=== PATIENT | female | born 1955 | race Caucasian/White ===

== ENCOUNTER 2017-06-11 06:59 | Inpatient (IN) | payer OTHER ==
[2017-06-11] VITALS (7 sets, daily range): BP systolic 110–158; BP diastolic 49–90
[~2017-06-11] VITALS: Ht 170.2 cm; Wt 114.4 kg
--- NOTE | ~2017-06-11 | ST ---
[place], [place] EXERCISE STRESS TEST REPORT NAME: NOEMI ESCOBAR UNIT #: [id number] ROOM: 528 DOCTOR: SUKH QUINONES [facility],[place] BIRTHDATE: [birth year] DOS: 06/12/2017 The patient received Lexiscan 0.4 mg over 10 seconds, heart rate is 90, isotope was injected. No EKG changes for myocardial ischemia noted. No complications noted. Myocardial perfusion scan to follow. MAIRA LUZ MD CM:STRESS:EXERCISE STRESS TEST REPORT [id number] MAIRA LUZ MD [facility]
--- NOTE | ~2017-06-11 | CON ---
[place], [place] REPORT OF CONSULTATION NAME: NOEMI ESCOBAR UNIT #: [id number] ROOM: 528 [facility] [birth year] DOS: 06/11/2017 CARDIOLOGY CONSULTATION HISTORY OF PRESENT ILLNESS: The patient is a 61-year-old female, moderately obese individual, weighs about 114 kilos, 5 feet 7 inches tall and BMI is 39.5 kg/m2. She came in with history of precordial chest pain that lasted for more than an hour last night and some epigastric distress also, and the symptoms improved, came to the Emergency Room. The patient has a history of angina and coronary artery disease. Catheterization was done several months ago. The patient has a history of diabetes mellitus, hypertension. No syncope or presyncope. CT scan of the abdomen and pelvis was done. No acute changes noted. Chest x-ray was unremarkable in the Emergency Room. REVIEW OF SYSTEMS: HEENT: Unremarkable. CARDIOPULMONARY: As described. GASTROINTESTINAL: Unremarkable. GENITOURINARY: Unremarkable. NEUROLOGICAL: No stroke. PAST MEDICAL HISTORY: The patient has history of coronary artery disease, depression, essential hypertension, fatty liver, fibromyalgia, gastroesophageal reflux disease, diabetes mellitus type 2, insulin-dependent. The patient also has vitamin D deficiency. PAST SURGICAL HISTORY: The patient has an appendectomy, cardiac catheterization. The patient has coronary intervention done in the past, cholecystectomy, exploratory laparotomy and hysterectomy. SOCIAL HISTORY: No alcohol, drug or tobacco use. PHYSICAL EXAMINATION: VITAL SIGNS: Stable. Blood pressure 140/50, 150/90, 136/62. SKIN: Warm, not diaphoretic. NECK: Supple. No jugular venous distention. LUNGS: No rales heard. HEART: S1, S2 regular. No gallops heard. ABDOMEN: Soft. SKIN: Color is good, not diaphoretic. No cyanosis. NEUROLOGY: No focal neurological deficit. RECTAL, GENITAL, AND BREASTS: Deferred unrelated. LABORATORY DATA: Initial electrolytes are unremarkable. Troponin is also unremarkable. IMPRESSION: Gastroesophageal reflux disease. DIAGNOSES: Chest pain and history of coronary intervention and Lexiscan Cardiolite evaluated for ischemic heart disease. I will review the [place], [place] REPORT OF CONSULTATION NAME: NOEMI ESCOBAR UNIT #: [id number] ROOM: 528 DOCTOR: SUKH QUINONES [facility] BIRTHDATE: [birth year] echocardiogram. We will continue the current therapy. Workup is in progress. MAIRA LUZ MD CM:CONSTR:REPORT OF CONSULTATION 1309 06/12/17 0350 interface
[~2017-06-11 06:59] MED LIST: ALPRAZOLAM1 MG PO; AMOXICILLIN500 M2 PO; ANAPROX DS550 MG PO; AVPAK AZITHROM250 M1 PO; BENTYL20 MG PO; CARAFATE1 G1 PO; CICLOPIROX OLAM0.77% T; CLARITIN10 MG PO; CLINDAMYCIN HC300 MG PO; CLINDAMYCIN300 MG PO; CLONAZEPAM1 MG PO; CLONAZEPAM2 MG PO; COREG25 MG PO; COREG3.125 MG PO; COZAAR100 MG PO; DIAZEPAM2 MG PO; FENOFIBRATE160 MG PO; GAVISCON 80 MG-1 CT1 PO; GLIPIZIDE5 MG PO; INVOKANA100 M1 PO; INVOKANA100 MG PO; ISOSORBIDE30 MG PO; KLONOPIN1 M1 PO; KLONOPIN2 M1 PO; LEVEMIR10 ML SC; LISINOPRIL HCTZ1 TA1 PO; MEDROL DOSEPAK4 MG PO; MICONAZOLE V; Motrin,Rufen800 MG PO; NAPROSYN500 MG PO; NORTRIPTYLINE50 MG PO; NOVOLIN 701 UNIT/0.0 SC; NOVOLOG 70/30 M10 ML SC; NOVOLOG1 UNIT/0.0 SC; NOVOLOG100 U/ML SC; NYSTATIN CREAM15 GM T; OSCAL/D,OYSTER250 MG PO; PAMELOR50 MG PO; PCN-200200 MG PO; POTASSIUM CHLO10 ME5 PO; PREMARIN0.625 MG PO; PREVACID30 M1 PO; PROTONIX TR40 M1 PO; PROVENTIL0.09 MG/AC IH; TRICOR145 MG PO; TRICOR48 MG PO; VICODIN 5/500 505 MG PO; VITAMIN D PO; VITAMIN D50000 I3 PO; VOLTAREN1% TP; XANAX1 MG PO; ZETIA10 MG PO; ZOFRAN4 MG PO
--- NOTE | 2017-06-11 07:15 | NUR ---
REPORT RECIEVED AT 0715 FROM ADALGISA REGALADO. SEE EXAM ROOM ASSESSMENT.IZZY RN
[2017-06-11 07:22] LABS: BASO % 0.4 % (0.0-1.0); EOS # 0.1 10*3/uL (0.0-0.4); EOS % 1.8 % (1.0-4.0); HEMATOCRIT 42.6 % (37.0-47.0); HEMOGLOBIN 14.1 g/dl (12.0-16.0); LYMPH # 2.1 10*3/uL (1.3-4.4); LYMPH % 28.7 % (27.0-41.0); MEAN CELL VOLUME 88.2 fl (81.0-99.0); MEAN CORPUSCULAR HGB 29.2 pg (27.0-31.0); MEAN CORPUSCULAR HGB CONC 33.1 g/dl (33.0-37.0); MEAN PLATELET VOLUME 10.2 fl (9.6-12.3); MONO # 0.4 10*3/uL (0.1-1.0); NEUT # 4.6 10*3/uL (2.3-7.9); NEUT % 62.7 % (47.0-73.0); PLATELET COUNT AUTOMATED 236 10*3/uL (130-400); RED BLOOD COUNT 4.83 10*6/uL (4.10-5.10); RED CELL DISTRI WIDTH 13.3 % (0-14.5); WHITE BLOOD COUNT 7.4 10*3/uL (4.8-10.8)
[2017-06-11 07:31] LABS: ACT PARTIAL THROMBO TIME 23.1 SECONDS (20.8-31.5)
[2017-06-11 07:39] LABS: ALBUMIN 3.4 gm/dl (3.1-4.5); ALKALINE PHOSPHATASE 62 U/L (45-117); BUN 20 mg/dl (7-24); CHLORIDE 106 mmol/L (98-107); CKMB 0.5 ng/ml (0.5-3.6); CPK 54 U/L (26-192); CREATININE 0.91 mg/dL (0.55-1.02); LIPASE 162 U/L (73-393); MAGNESIUM 2.3 mg/dL (1.5-2.1); POTASSIUM 3.9 mmol/L (3.5-5.1); SGOT/AST 44 IU/L (3-35); SGPT/ALT 32 U/L (12-78); SODIUM 138 mmol/L (136-145); TOTAL PROTEIN 7.3 gm/dL (6.4-8.2)
[2017-06-11 07:40] LABS: TROPONIN I < 0.015 ng/ml (<0.045)
--- NOTE | 2017-06-11 10:00 | NUR ---
Time: 1000 A 61 year old F admitted to 5E under services of SIM EDMONDS DO. Pt. arrived via stretcher from ER. Chief complaint: CHEST/EPIGASTRIC PAIN. PHOEBE FLORES
--- NOTE | 2017-06-11 10:30 | NUR ---
PT C/O WEAKNESS, AND GENERALIZED MALAISE. REQUESTION BS TO BE TAKEN. BS IS 154. DR. MORAN AT BEDSIDE, & AWARE OF PT C/O. DISCUSSED POC W/PT.
--- NOTE | 2017-06-11 12:01 | NUR ---
RESTING COMFORTABLY, CONTINUES TO DENY CHEST PAIN. NO SOB, OR VISUAL CHANGES NOTED. CALL LIGHT SYSTEM REINFORCED FOR ASSISTENCE.
[2017-06-11] MEDS ORDERED: NORCO 5-325 TA1 EACH PO (12:10)
[2017-06-11] MEDS ORDERED: KLONOPIN1 M1 PO (12:11)
[2017-06-11] MEDS ORDERED: TRAZODONE100 MG PO (12:12)
--- NOTE | 2017-06-11 12:13 | NUR ---
PER PT, SHE USES 2 PHARMACIES, [facility] [place] & [facility]. MEDS UPDATED WITH [facility], AWAITING FAX FROM [facility].
--- NOTE | 2017-06-11 12:24 | NUR ---
SPOKE WITH DR. LUZ'S ANSWERING SERVICE REGARDING CONSULT.
--- NOTE | 2017-06-11 12:29 | NUR ---
DR. LUZ NOTIFIED OF CONSULT, NEW ORDERS RECIEVED.
--- NOTE | 2017-06-11 13:02 | NUR ---
DR. LUZ INTO SEE PT. DISCUSSED PLAN OF CARE.
[2017-06-11] MEDS ORDERED: IMDUR SA60 MG PO (13:14)
[2017-06-11] MEDS ORDERED: Motrin,Rufen800 MG PO (13:17)
[2017-06-11] MEDS ORDERED: ALOGLIPTIN6.25 MG PO (13:19)
[2017-06-11] MEDS ORDERED: CLOBETASOL EMOL15 GM T (13:21)
[2017-06-11] MEDS ORDERED: NOVOLOG100 UNIT/1 SQ (13:24)
[2017-06-11] MEDS ORDERED: BASAGLAR SC (13:29)
[2017-06-11] MEDS ORDERED: PROTONIX20 MG PO (13:32)
[2017-06-11 14:01] LABS: BILIRUBIN NEGATIVE (NEGATIVE); BLOOD TRACE-LYSED (NEGATIVE); CLARITY CLEAR (CLEAR); COLOR YELLOW (YELLOW); GLUCOSE TRACE (NEGATIVE); KETONE NEGATIVE (NEGATIVE); LEUKO ESTERASE 1+ (NEGATIVE); NITRITE NEGATIVE (NEGATIVE); UROBILINOGEN 0.2 E.U./dl (0.2-1.0)
[2017-06-11 14:15] LABS: BACTERIA TRACE
--- NOTE | 2017-06-11 17:15 | NUR ---
MEDICATED PO ORDERED PER PT REQUEST WITH MAALOX FOR C/O "STOMACH BURNING SENSATION" AND KLONOPIN FOR C/O INCREASED ANXIETY. SEE EMAR. DISCUSSED STAYING IN UPRIGHT POSITION AFTER EATING. PT VOICES UNDERSTANDING.
--- NOTE | 2017-06-11 18:46 | NUR ---
PER PT, MEDICATIONS EFFECTIVE IN RELIEVING "BURNING SENSATION" IN STOMACH.
--- NOTE | 2017-06-11 20:00 | NUR ---
RESTING IN BED. RESPIRATIONS EASY. LUNGS DIMINISHED, CLEAR. PULSE OX 97% RA. C/O SINUS DRAINAGE. TRACE BLE EDEMA NOTED, TEDS APPLIED PER PRN ORDER. CALL LIGHT WITHIN REACH.
--- NOTE | 2017-06-11 21:20 | NUR ---
ANXIOUS AND TEARFUL. PATIENT EXPLAINS THAT HER SISTER RECENTLY AND THAT SHE IS STRESSED. REQUESTED AND RECEIVED KLONOPIN FOR ANXIETY. ALSO RECEIVED GAVISCON PER PRN ORDER FOR C/O "STOMACH BURNING." CALL LIGHT WITHIN REACH. WILL MONITOR FOR EFFECTIVENESS
--- NOTE | 2017-06-11 23:00 | NUR ---
REQUESTED AND RECEIVED TRAZADONE AT THIS TIME THAT PATIENT EARLIER REFUSED.
[2017-06-12] VITALS: BP 138/69
--- NOTE | 2017-06-12 | NUR ---
EARLIER MEDS APPEAR EFFECTIVE. PATIENT SLEEPING
--- NOTE | 2017-06-12 02:25 | NUR ---
PATIENT AWAKENS, ANXIOUS AND TEARFUL. PATIENT C/O ALL OVER PAIN RATING A 7, MEDICATED WITH TYLENOL PER PRN ORDER. ALSO MEDICATED WITH RESTORIL PATIENT STATES "I JUST WANT TO SLEEP." PATIENT ENCOURAGED TO ATTEMPT TO RELAX, TO WHICH PATIENT TEARFULLY REPLIES "I JUST WISH MY MOM AND SISTER WERE HERE." 1:1 PROVIDED IN ATTEMPTS TO CALM PATIENT WITH LITTLE SUCCESS
--- NOTE | 2017-06-12 04:00 | NUR ---
EARLIER MEDS APPEAR EFFECTIVE. PATIENT RESTING WITH EYES CLOSED. RESPIRATIONS EASY. CALL LIGHT WITHIN REACH
--- NOTE | 2017-06-12 05:54 | NUR ---
PATIENT INJECTED FOR STRESS TEST. NOW VOMITING. CARDIAC REHAB NOTIFIED AND OK RECEIVED TO GIVE ZOFRAN, MEDICATED PER PRN ORDER.
--- NOTE | 2017-06-12 06:00 | NUR ---
OFF FLOOR FOR TESTING.
--- NOTE | 2017-06-12 06:58 | NUR ---
INFORMED SIGNED CONSENT OBTAINED FOR LEXISCAN STRESS TEST WITH DR LUZ. RESTING EKG NSR HR 77 BP 140/68. PULSE OX 99% LUNGS CLEAR. PT COMPLETED ONE MINUTE OF A LEXISCAN PROTOCOL WITH PT RECEIVING LEXISCAN 0.4MG IV OVER 10 SECONDS. PT C/O CHEST DISCOMFORT THAT SUBSIDED. NO ARRHYTHMIAS OR ST CHANGES NOTED. LAST RECOVERY HR OF 90 BP 128/70. PT IN STABLE CONDITION AWAITING NUCLEAR IMAGES.
[2017-06-12 07:30] LABS: BASO % 0.4 % (0.0-1.0); EOS # 0.1 10*3/uL (0.0-0.4); EOS % 0.9 % (1.0-4.0); HEMATOCRIT 44.5 % (37.0-47.0); HEMOGLOBIN 14.8 g/dl (12.0-16.0); LYMPH # 2.4 10*3/uL (1.3-4.4); LYMPH % 32.6 % (27.0-41.0); MEAN CELL VOLUME 88.3 fl (81.0-99.0); MEAN CORPUSCULAR HGB 29.4 pg (27.0-31.0); MEAN CORPUSCULAR HGB CONC 33.3 g/dl (33.0-37.0); MEAN PLATELET VOLUME 10.2 fl (9.6-12.3); MONO # 0.5 10*3/uL (0.1-1.0); MONO % 6.3 % (3.0-9.0); NEUT # 4.4 10*3/uL (2.3-7.9); NEUT % 59.4 % (47.0-73.0); PLATELET COUNT AUTOMATED 255 10*3/uL (130-400); RED BLOOD COUNT 5.04 10*6/uL (4.10-5.10); RED CELL DISTRI WIDTH 13.5 % (0-14.5); WHITE BLOOD COUNT 7.5 10*3/uL (4.8-10.8)
[2017-06-12 08:00] VITALS: BP 147/56
[2017-06-12 08:02] LABS: ALBUMIN 3.5 gm/dl (3.1-4.5); ALKALINE PHOSPHATASE 68 U/L (45-117); BUN 16 mg/dl (7-24); CHLORIDE 103 mmol/L (98-107); CHOLESTEROL 178 mg/dL (<200); HDL CHOLESTEROL 48 mg/dl (40-60); LDL CHOLESTEROL 87 mg/dL (9-159); MAGNESIUM 2.6 mg/dL (1.5-2.1); PHOSPHOROUS 3.1 mg/dL (2.5-4.9); POTASSIUM 3.7 mmol/L (3.5-5.1); SGOT/AST 38 IU/L (3-35); SGPT/ALT 35 U/L (12-78); SODIUM 138 mmol/L (136-145); TOTAL PROTEIN 7.9 gm/dL (6.4-8.2); TRIGLYCERIDES 216 mg/dl (<150); VLDL CHOLESTEROL 43 mg/dL (6-40)
--- NOTE | 2017-06-12 09:00 | NUR ---
Drawing Supervisor in to talk to patient. Patient states lives at home with alone. There are few steps in the home. Physician: xenia kingston [facility] Home health services: none Patient's level of ADLs: INDEPENDENT Patient has working utilities: all working DME: cane Follow-up physician's appointment after d/c: will be made by hospitalist nurse director upon discharge Does patient want to access PORTAL?: no Discharge plan discussed with patient, patient lives at home alone, she is independent in adls and ambulation, has a cane but rarely uses it, patient drives, states she will be going back home when able and denies any home needs. GIGI ARANDA
--- NOTE | 2017-06-12 09:14 | NUR ---
DR MIRELES IN TO SEE PT & EXAMINED PTS LEFT & RT EAR DUE TO PT C/O LEFT EAR DISCOMFORT. PT DECLINES AM INSULIN AT THIS TIME. PRN KLONOPIN PER PT REQUEST FOR C/O INCREASED ANXIETY. SEE SHIFT ASSESSMENT.
--- NOTE | 2017-06-12 11:21 | NUR ---
MEDICATED PO ORDERED PER PT REQUEST WITH TYLENOL 2 TABS FOR C/O MEDINA. SEE EMAR.
[2017-06-12 12:00] VITALS: BP 104/61
--- NOTE | 2017-06-12 12:08 | NUR ---
OOB TO CHAIR, CALL LIGHT SYSTEM WITHIN REACH.
[2017-06-12] MEDS ORDERED: GAVISCON LIQUI355 ML PO (15:52)
[2017-06-12] MEDS ORDERED: PROTONIX20 MG PO (15:52)
[2017-06-12 16:00] VITALS: BP 94/52
--- NOTE | 2017-06-12 16:42 | NUR ---
Discharge instructions reviewed with patient/family. Patient receptive and verbalizes understanding. Written instructions given to patient/family. JOSEY DONNELLY
== END 2017-06-12 16:42 | disposition home or self-care (01) | DRG 392 ==
LOC: ED 06:59 → EDHOLD 08:56 → 5E 08:56
PROVIDERS: Emergency Medicine; Family Medicine; ADMIT Internal Medicine
PROC: 4A02XM4 Measurement of Cardiac Total Activity, External Approach (ICD-10-PCS; principal; 2017-06-12)
PROC: 3E073KZ Introduction of Other Diagnostic Substance into Coronary Artery, Percutaneous Approach (ICD-10-PCS; 2017-06-12)
DX: K29.70 Gastritis, unspecified, without bleeding (principal); E11.65 Type 2 diabetes mellitus with hyperglycemia; K76.0 Fatty (change of) liver, not elsewhere classified; K21.9 Gastro-esophageal reflux disease without esophagitis; E83.41 Hypermagnesemia; E66.01 Morbid (severe) obesity due to excess calories; I25.118 Atherosclerotic heart disease of native coronary artery with other forms of angina pectoris; F41.1 Generalized anxiety disorder; M79.7 Fibromyalgia; F32.9 Major depressive disorder, single episode, unspecified; I10 Essential (primary) hypertension; M19.90 Unspecified osteoarthritis, unspecified site; E78.2 Mixed hyperlipidemia; Z79.4 Long term (current) use of insulin; Z90.49 Acquired absence of other specified parts of digestive tract; Z90.710 Acquired absence of both cervix and uterus; Z82.49 Family history of ischemic heart disease and other diseases of the circulatory system; Z83.3 Family history of diabetes mellitus; Z83.6 Family history of other diseases of the respiratory system; Z79.899 Other long term (current) drug therapy; Z88.8 Allergy status to other drugs, medicaments and biological substances; Z91.041 Radiographic dye allergy status; Z68.37 Body mass index [BMI] 37.0-37.9, adult; Z88.6 Allergy status to analgesic agent

== ENCOUNTER 2017-07-09 07:46 | Inpatient (IN) | payer OTHER ==
[~2017-07-09] VITALS: Ht 170.1 cm; Wt 109.4 kg
--- NOTE | ~2017-07-09 | O ---
[place], [place] OPERATIVE NOTE NAME: NOEMI ESCOBAR UNIT #: [id number] ROOM: 407 [facility] BIR[facility] [birth year] DOS: HISTORY OF PRESENT ILLNESS: The patient has presented with multiple medical problems, among which has cervical dysphagia, particularly to solid food. PAST MEDICAL HISTORY: Associated diabetic neuropathy, anxiety, degenerative joint disease, depression, fatty liver, fibromyalgia, gastroesophageal reflux disease, hyperlipidemia, irritable bowel syndrome, diabetes mellitus. PAST SURGICAL HISTORY: Associated balloon angioplasty, cholecystectomy, coronary artery balloon dilation, exploratory laparotomy, hysterectomy, D and C. SOCIAL HISTORY: Nonsmoker, nonalcohol consumer. FAMILY HISTORY: Noncontributory. ALLERGIES: BENADRYL, DIFLUCAN, IODINE, MORPHINE, PROPOXYPHENE. MEDICATIONS: List has been reviewed. PROCEDURE: Today's procedure part of investigation is panendoscopy plus balloon dilation of esophagus plus biopsy. PREMEDICATION: Versed and Diprivan. SCOPE: Olympus forward-viewing gastroscope Q10 video. REPORT: After putting the patient in the left lateral position and after application of lubricant to the scope, the scope was introduced. Thereafter, under direct visualization, I advanced through the length of esophagus without difficulty. Esophagus, cervical, thoracic and distal within normal limits. Stricture of benign nature in the upper esophagus was noticed. Gastric pouch was entered. Gastritis seen. Antrum was biopsied. Duodenal bulb, second and third part within normal limits. Scope was withdrawn back to the gastric pouch. A balloon size 20 was introduced into gastric pouch, inflated to size 20 and orally withdrawn. The highest resistance and very tight ____ cervical esophagus was dilated. The patient extubated, tolerated procedure well. IMPRESSION: Cervical esophageal stricture, status post balloon dilation, gastritis, status post biopsy. PLAN AND DISCUSSION: This patient has been taking ibuprofen 800 mg t.i.d. p.r.n. and most likely she is going to go back to the above because of degenerative joint disease; therefore, I am going to keep her on omeprazole 20 mg p.o. every day at the time of discharge and at the present time, while she is in hospital, we are going to restart her on regular diet to see if she tolerates and as far as GI system is concerned, she will be okay for discharge. Other adjunctive diagnoses that have been in GI system entertained have been epigastric pain, hemetemesis, nausea, dysphagia, gastroesophageal reflux [place], [place] OPERATIVE NOTE NAME: NOEMI ESCOBAR UNIT #: [id number] ROOM: 407 DOCTOR: ALICE QUINONES,WILFRED BIRTHDATE: [birth year] symptomatology and irritable bowel syndrome and fatty liver. Thank you very much indeed for your kind referral. WILFRED JENKINS MD CM:OPRECORD:OPERATIVE NOTE 08 2357 WILFRED JENKINS MD 07/10/17 2356 interface
[~2017-07-09 07:46] MED LIST changes: +ALOGLIPTIN6.25 MG PO; +BASAGLAR SC; +CLOBETASOL EMOL15 GM T; +GAVISCON LIQUI355 ML PO; +IMDUR SA60 MG PO; +NORCO 5-325 TA1 EACH PO; +NOVOLOG100 UNIT/1 SQ; +PROTONIX20 MG PO; +TRAZODONE100 MG PO
[2017-07-09 07:49] VITALS: BP 100/70
[2017-07-09 08:22] LABS: BILIRUBIN NEGATIVE (NEGATIVE); BLOOD TRACE-INTACT (NEGATIVE); CLARITY CLEAR (CLEAR); COLOR YELLOW (YELLOW); GLUCOSE NEGATIVE (NEGATIVE); KETONE NEGATIVE (NEGATIVE); LEUKO ESTERASE NEGATIVE (NEGATIVE); NITRITE NEGATIVE (NEGATIVE); UROBILINOGEN 0.2 E.U./dl (0.2-1.0)
[2017-07-09 08:28] LABS: BACTERIA TRACE; WBC 0-2 wbc/hpf (0-5)
[2017-07-09 08:35] LABS: BASO % 0.4 % (0.0-1.0); EOS # 0.1 10*3/uL (0.0-0.4); EOS % 1.5 % (1.0-4.0); HEMATOCRIT 42.7 % (37.0-47.0); HEMOGLOBIN 14.1 g/dl (12.0-16.0); LYMPH % 27.8 % (27.0-41.0); MEAN CELL VOLUME 87.7 fl (81.0-99.0); MEAN PLATELET VOLUME 10.3 fl (9.6-12.3); MONO # 0.5 10*3/uL (0.1-1.0); MONO % 6.4 % (3.0-9.0); NEUT # 4.6 10*3/uL (2.3-7.9); NEUT % 63.6 % (47.0-73.0); PLATELET COUNT AUTOMATED 239 10*3/uL (130-400); RED BLOOD COUNT 4.87 10*6/uL (4.10-5.10); RED CELL DISTRI WIDTH 13.2 % (0-14.5); WHITE BLOOD COUNT 7.2 10*3/uL (4.8-10.8)
[2017-07-09 08:44] LABS: ACT PARTIAL THROMBO TIME 23.9 SECONDS (20.8-31.5)
[2017-07-09 08:54] LABS: ALBUMIN 3.6 gm/dl (3.1-4.5); ALKALINE PHOSPHATASE 63 U/L (45-117); BUN 10 mg/dl (7-24); CHLORIDE 107 mmol/L (98-107); CREATININE 0.98 mg/dL (0.55-1.02); LIPASE 153 U/L (73-393); MAGNESIUM 2.4 mg/dL (1.5-2.1); POTASSIUM 4.1 mmol/L (3.5-5.1); SGOT/AST 30 IU/L (3-35); SGPT/ALT 28 U/L (12-78); SODIUM 141 mmol/L (136-145); TOTAL PROTEIN 7.8 gm/dL (6.4-8.2)
[2017-07-09 09:04] LABS: TROPONIN I < 0.015 ng/ml (<0.045)
[2017-07-09 16:00] VITALS: BP 142/67
[2017-07-09 20:00] VITALS: BP 123/59
[2017-07-10] VITALS (7 sets, daily range): BP systolic 101–141; BP diastolic 52–76
[2017-07-10] MEDS ORDERED: Imdur SA60 MG PO (03:47)
[2017-07-10 05:16] LABS: BUN 13 mg/dl (7-24); CHLORIDE 104 mmol/L (98-107); CHOLESTEROL 137 mg/dL (<200); MAGNESIUM 2.5 mg/dL (1.5-2.1); PHOSPHOROUS 3.4 mg/dL (2.5-4.9); POTASSIUM 3.9 mmol/L (3.5-5.1); SODIUM 139 mmol/L (136-145); TRIGLYCERIDES 158 mg/dl (<150); VLDL CHOLESTEROL 32 mg/dL (6-40)
[2017-07-10 05:26] LABS: FREE T4 1.23 ng/dl (0.76-1.46); HDL CHOLESTEROL 44 mg/dl (40-60); LDL CHOLESTEROL 61 mg/dL (9-159)
[2017-07-10 06:00] LABS: BASO % 0.3 % (0.0-1.0); EOS # 0.1 10*3/uL (0.0-0.4); EOS % 1.6 % (1.0-4.0); HEMATOCRIT 41.6 % (37.0-47.0); HEMOGLOBIN 13.7 g/dl (12.0-16.0); LYMPH # 2.9 10*3/uL (1.3-4.4); LYMPH % 43.6 % (27.0-41.0); MEAN CELL VOLUME 89.8 fl (81.0-99.0); MEAN CORPUSCULAR HGB 29.6 pg (27.0-31.0); MEAN CORPUSCULAR HGB CONC 32.9 g/dl (33.0-37.0); MEAN PLATELET VOLUME 10.8 fl (9.6-12.3); MONO # 0.5 10*3/uL (0.1-1.0); MONO % 8.1 % (3.0-9.0); NEUT # 3.1 10*3/uL (2.3-7.9); NEUT % 46.1 % (47.0-73.0); PLATELET COUNT AUTOMATED 231 10*3/uL (130-400); RED BLOOD COUNT 4.63 10*6/uL (4.10-5.10); RED CELL DISTRI WIDTH 13.5 % (0-14.5); WHITE BLOOD COUNT 6.7 10*3/uL (4.8-10.8)
[2017-07-10] MEDS ORDERED: OMEPRAZOLE D/R20 MG PO (20:10)
[2017-07-10] MEDS ORDERED: REGLAN5 MG PO (20:18)
[2017-07-10] MEDS ORDERED: KLONOPIN2 M1 PO (22:08)
[2017-07-11] VITALS: BP 117/79
[2017-07-11 08:00] VITALS: BP 116/55
[2017-07-11] MEDS ORDERED: PROTONIX20 MG PO (10:22)
[2017-07-11] MEDS ORDERED: VITAMIN D-32000 UNIT PO (10:27)
== END 2017-07-11 11:30 | disposition home or self-care (01) | DRG 392 ==
LOC: ED 07:46 → 4E 11:52 → EDHOLD 11:52 → 4E 12:32
PROVIDERS: Emergency Medicine; Family Medicine Adult Medicine; Internal Medicine; ADMIT Internal Medicine
PROC: 0D718ZZ Dilation of Upper Esophagus, Via Natural or Artificial Opening Endoscopic (ICD-10-PCS; principal; 2017-07-09)
PROC: 0DB68ZX Excision of Stomach, Via Natural or Artificial Opening Endoscopic, Diagnostic (ICD-10-PCS; 2017-07-09)
DX: K22.2 Esophageal obstruction (principal); E11.42 Type 2 diabetes mellitus with diabetic polyneuropathy; N12 Tubulo-interstitial nephritis, not specified as acute or chronic; E11.65 Type 2 diabetes mellitus with hyperglycemia; E83.41 Hypermagnesemia; K76.0 Fatty (change of) liver, not elsewhere classified; E66.01 Morbid (severe) obesity due to excess calories; B96.20 Unspecified Escherichia coli [E. coli] as the cause of diseases classified elsewhere; K21.9 Gastro-esophageal reflux disease without esophagitis; I25.10 Atherosclerotic heart disease of native coronary artery without angina pectoris; K58.1 Irritable bowel syndrome with constipation; M79.7 Fibromyalgia; F41.1 Generalized anxiety disorder; E78.2 Mixed hyperlipidemia; M19.90 Unspecified osteoarthritis, unspecified site; L30.9 Dermatitis, unspecified; E53.8 Deficiency of other specified B group vitamins; K29.70 Gastritis, unspecified, without bleeding; I10 Essential (primary) hypertension; Z90.49 Acquired absence of other specified parts of digestive tract; Z82.49 Family history of ischemic heart disease and other diseases of the circulatory system; Z83.3 Family history of diabetes mellitus; Z79.4 Long term (current) use of insulin; Z68.37 Body mass index [BMI] 37.0-37.9, adult; Z82.3 Family history of stroke; Z83.6 Family history of other diseases of the respiratory system; Z80.3 Family history of malignant neoplasm of breast; Z84.89 Family history of other specified conditions; Z88.8 Allergy status to other drugs, medicaments and biological substances; Z88.6 Allergy status to analgesic agent; Z91.041 Radiographic dye allergy status; Z79.899 Other long term (current) drug therapy

== ENCOUNTER → 2017-10-14 | Outpatient (CLI) | payer OTHER ==
[~2017-10-14] MED LIST changes: +Imdur SA60 MG PO; +OMEPRAZOLE D/R20 MG PO; +REGLAN5 MG PO; +VITAMIN D-32000 UNIT PO
== END | disposition home or self-care (01) ==
LOC: RAD 14:28
DX: M15.0 Primary generalized (osteo)arthritis (principal)

== ENCOUNTER → 2018-02-11 | Outpatient (CLI) | payer OTHER | END | disposition home or self-care (01) | LOC: LAB 11:19 | DX: M16.11 Unilateral primary osteoarthritis, right hip (principal); M25.531 Pain in right wrist; G89.29 Other chronic pain; Z91.81 History of falling ==

== ENCOUNTER → 2018-04-23 | Outpatient (CLI) | payer OTHER ==
[~2018-04-23] MED LIST changes: +VICO10300 PO
[2018-04-23 14:20] LABS: CREATININE 1.3 mg/dL (0.55-1.02); POTASSIUM 3.8 mmol/L (3.5-5.1)
== END | disposition home or self-care (01) ==
LOC: LAB 13:26
PROVIDERS: Internal Medicine Cardiovascular Disease
DX: I25.118 Atherosclerotic heart disease of native coronary artery with other forms of angina pectoris (principal)

== ENCOUNTER 2018-04-24 11:54 | Emergency (ER) | payer OTHER ==
[~2018-04-24] VITALS: Ht 165.1 cm; Wt 95.3 kg
--- NOTE | ~2018-04-24 | EKG ---
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
[~2018-04-24 11:54] MED LIST changes: -VICO10300 PO
[2018-04-24 12:47] LABS: BASO % 0.3 % (0.0-1.0); EOS # 0.1 10*3/uL (0.0-0.4); HEMATOCRIT 41.1 % (37.0-47.0); HEMOGLOBIN 13.7 g/dl (12.0-16.0); LYMPH # 1.9 10*3/uL (1.3-4.4); LYMPH % 18.7 % (27.0-41.0); MEAN CELL VOLUME 88.6 fl (81.0-99.0); MEAN CORPUSCULAR HGB 29.5 pg (27.0-31.0); MEAN CORPUSCULAR HGB CONC 33.3 g/dl (33.0-37.0); MEAN PLATELET VOLUME 10.2 fl (9.6-12.3); MONO # 0.6 10*3/uL (0.1-1.0); NEUT # 7.6 10*3/uL (2.3-7.9); NEUT % 73.6 % (47.0-73.0); PLATELET COUNT AUTOMATED 242 10*3/uL (130-400); RED BLOOD COUNT 4.64 10*6/uL (4.10-5.10); RED CELL DISTRI WIDTH 13.3 % (0-14.5); WHITE BLOOD COUNT 10.3 10*3/uL (4.8-10.8)
[2018-04-24 13:03] VITALS: BP 113/62
[2018-04-24 13:05] LABS: ALBUMIN 3.5 gm/dl (3.1-4.5); ALKALINE PHOSPHATASE 66 U/L (45-117); BUN 13 mg/dl (7-24); CHLORIDE 106 mmol/L (98-107); CREATININE 0.98 mg/dL (0.55-1.02); POTASSIUM 3.8 mmol/L (3.5-5.1); SGOT/AST 43 IU/L (3-35); SGPT/ALT 36 U/L (12-78); SODIUM 139 mmol/L (136-145); TOTAL PROTEIN 7.6 gm/dL (6.4-8.2)
[2018-04-24 13:10] LABS: TROPONIN I < 0.015 ng/ml (<0.045)
[2018-04-24] MEDS ORDERED: VICO10300 PO (14:47)
== END 2018-04-24 23:49 | disposition home or self-care (01) ==
LOC: ED 11:54
PROVIDERS: Emergency Medicine
DX: R07.89 Other chest pain (principal); G62.9 Polyneuropathy, unspecified; I25.10 Atherosclerotic heart disease of native coronary artery without angina pectoris; E11.40 Type 2 diabetes mellitus with diabetic neuropathy, unspecified; K21.9 Gastro-esophageal reflux disease without esophagitis; M79.7 Fibromyalgia; E78.2 Mixed hyperlipidemia; E66.01 Morbid (severe) obesity due to excess calories; M19.90 Unspecified osteoarthritis, unspecified site; E11.65 Type 2 diabetes mellitus with hyperglycemia; Z90.49 Acquired absence of other specified parts of digestive tract; Z90.710 Acquired absence of both cervix and uterus; Z98.890 Other specified postprocedural states; Z79.899 Other long term (current) drug therapy; Z79.4 Long term (current) use of insulin; Z88.6 Allergy status to analgesic agent; Z88.1 Allergy status to other antibiotic agents; Z88.5 Allergy status to narcotic agent; Z79.82 Long term (current) use of aspirin

== ENCOUNTER → 2018-10-21 | Outpatient (CLI) | payer OTHER ==
[~2018-10-21] MED LIST changes: +VICO10300 PO
== END | disposition home or self-care (01) ==
LOC: RAD 11:44
DX: R06.02 Shortness of breath (principal); I50.9 Heart failure, unspecified

== ENCOUNTER 2019-08-10 09:55 | Inpatient (IN) | payer OTHER ==
[~2019-08-10] VITALS: Ht 170.2 cm; Wt 116.6 kg
--- NOTE | ~2019-08-10 | EKG ---
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
[2019-08-10 09:56] VITALS: BP 134/68
--- NOTE | 2019-08-10 10:02 | NUR ---
PATIENT CHANGED INTO GOWN FOR POSSIBLE XRAYS.
[2019-08-10 12:56] LABS: BASO % 0.4 % (0.0-1.0); EOS # 0.1 10*3/uL (0.0-0.4); EOS % 1.4 % (1.0-4.0); HEMATOCRIT 40.6 % (37.0-47.0); LYMPH # 2.5 10*3/uL (1.3-4.4); MEAN CELL VOLUME 92.7 fl (81.0-99.0); MEAN CORPUSCULAR HGB 29.7 pg (27.0-31.0); MONO # 0.5 10*3/uL (0.1-1.0); MONO % 6.7 % (3.0-9.0); NEUT # 4.6 10*3/uL (2.3-7.9); NEUT % 59.2 % (47.0-73.0); PLATELET COUNT AUTOMATED 265 10*3/uL (130-400); RED BLOOD COUNT 4.38 10*6/uL (4.10-5.10); RED CELL DISTRI WIDTH 13.7 % (0-14.5); WHITE BLOOD COUNT 7.8 10*3/uL (4.8-10.8)
[2019-08-10 13:00] VITALS: BP 123/57
[2019-08-10 13:06] LABS: INTERNATIONAL NORM RATIO 0.9 (2.0-3.5)
[2019-08-10 13:10] LABS: ALBUMIN 3.4 gm/dl (3.1-4.5); CREATININE 1.17 mg/dL (0.55-1.02); POTASSIUM 4.1 mmol/L (3.5-5.1); TOTAL PROTEIN 7.6 gm/dL (6.4-8.2)
[2019-08-10 13:35] VITALS: BP 123/49
--- NOTE | 2019-08-10 13:45 | NUR ---
PATIENT IS HAVING PAIN RELIEF WITH THE 50MCG OF FENTANYL IV.
--- NOTE | 2019-08-10 13:58 | NUR ---
PATIENT AT MRI AT THIS TIME TRANSPORTED BY [facility]. VERBAL ORDER FOR PATIENT TO GO TO MRI FOR SCAN AND FOR DR RIVERA TO SEE PATIENT BEFORE SHE IS ABLE TO GO TO THE FLOOR, VERBAL ORDER FROM JESSICA BRAVO.
--- NOTE | 2019-08-10 14:45 | NUR ---
PATIENT RETURNS FROM MRI.
--- NOTE | 2019-08-10 16:15 | NUR ---
ASKED JESSICA LAMAR IF DR DUNCAN SPOKE WITH PATIENT AND JESSICA STATES THAT IT IS OK FOR PATIENT TO GO TO THE FLOOR NOW.
[2019-08-10 16:54] VITALS: BP 120/64
--- NOTE | 2019-08-10 16:55 | NUR ---
BEDSIDE REPORT GIVEN TO MARIO REGALADO NO CHANGE IN PATIENT STATUS. STATES THAT THE FENTANYL DID HELP HER.
--- NOTE | 2019-08-10 17:00 | NUR ---
A 63, admitted to 4E, under the services of ENRICO Ward DO with a diagnosis of COMPRESSION FRACTURE. Chief complaint is BACK PAIN . Patient arrived via stretcher from ER. Monitor applied. Initial assessment completed. Vital signs taken and recorded. ENRICO WARD DO notified of admission to the unit. Orders received. See assessment for past medical history, medications and allergies. Patient and/or family oriented to unit. [facility] visitation policy reviewed. Clothing/patient valuable form completed. MARIO CONCEPCION
[2019-08-10 17:15] VITALS: BP 91/47
[2019-08-10 20:00] VITALS: BP 145/70
--- NOTE | 2019-08-10 22:37 | NUR ---
WHEN GIVING PATIENT NIGHT MEDICTIONS, SHE REMEMBERED THAT SHE NOW TAKES HER IMDUR TWICE DAILY, MEDICTAION CHANGED ON MEDICATION LIST
[2019-08-11] VITALS: BP 147/85
[2019-08-11 05:35] LABS: BASO % 0.1 % (0.0-1.0); HEMATOCRIT 39.5 % (37.0-47.0); HEMOGLOBIN 12.6 g/dl (12.0-16.0); LYMPH # 1.5 10*3/uL (1.3-4.4); LYMPH % 17.7 % (27.0-41.0); MEAN CELL VOLUME 92.3 fl (81.0-99.0); MEAN CORPUSCULAR HGB 29.4 pg (27.0-31.0); MEAN CORPUSCULAR HGB CONC 31.9 g/dl (33.0-37.0); MEAN PLATELET VOLUME 10.1 fl (9.6-12.3); MONO # 0.2 10*3/uL (0.1-1.0); MONO % 2.9 % (3.0-9.0); NEUT # 6.6 10*3/uL (2.3-7.9); NEUT % 78.9 % (47.0-73.0); PLATELET COUNT AUTOMATED 275 10*3/uL (130-400); RED BLOOD COUNT 4.28 10*6/uL (4.10-5.10); RED CELL DISTRI WIDTH 13.4 % (0-14.5); WHITE BLOOD COUNT 8.4 10*3/uL (4.8-10.8)
[2019-08-11 06:07] LABS: CREATININE 1.3 mg/dL (0.55-1.02); PHOSPHOROUS 2.4 mg/dL (2.5-4.9); POTASSIUM 4.1 mmol/L (3.5-5.1)
[2019-08-11 06:13] LABS: THYROID STIM HORMONE (HS) 1.3 uIU/ml (0.358-4.75)
[2019-08-11 06:17] LABS: ACT PARTIAL THROMBO TIME 23.6 SECONDS (20.0-32.1)
[2019-08-11 08:00] VITALS: BP 144/72
--- NOTE | 2019-08-11 10:30 | NUR ---
PHYSICAL THERAPY Pending US to R LE due to R LE swelling. Awaiting results. Will attempt evaluation once Patient has been medically cleared. thank you Morena Plata, PT, DPT
--- NOTE | 2019-08-11 10:34 | NUR ---
Awaiting ultrasound results for LE r/o DVT before proceeding with OT evaluation. Priyanka Owen OTR/l
--- NOTE | 2019-08-11 11:23 | NUR ---
Director Video in to talk to patient. Patient states lives at home with alone. There are no steps in the home. Physician: laurel pantoja [facility] Home health services: none Patient's level of ADLs: MINIMAL ASSIST Patient has working utilities: all working DME: none Follow-up physician's appointment after d/c: will be made by hospitalist nurse director upon discharge Does patient want to access PORTAL?: no Discharge plan discussed with patient, she states she lives at home alone, she was independent in adls and ambulation until recently. she states she has had a difficult time ambulating and has had significant back pain, discussed with her a short term residential for rehab prior to returning home, patient declined, family member was present during this conversation, also discussed home health and patient stated she would rather go to outpatient rehab and has already spoken to the doctor regarding this, she also stated she drives and will be able to drive herself to outpatient therapy, patient denies any home needs at this time. GIGI ARANDA
[2019-08-11 12:00] VITALS: BP 126/78
--- NOTE | 2019-08-11 14:15 | NUR ---
Occupational Therapy evaluation completed on 4 with full eval to follow. Precautions include fall risk,new onset left shoulder pain and limited ROM,fall history,low complexity level 51388. Recommend return home with outpatient OT/PT for back safety if OT goals not met. Thank you. Priyanka Brown OTR/L
--- NOTE | 2019-08-11 14:23 | NUR ---
PHYSICAL THERAPY Physical therapy evaluation completed, 4E. Full details to follow. Low complexity determined after evaluation/chart review, [id number]. PT to work on strength, endurance, gait, transfers, bed mobility and balance. Recommending outpatient therapy at discharge. Thank you Morena Plata, PT, DPT
[2019-08-11 16:40] VITALS: BP 144/74
[2019-08-11 20:00] VITALS: BP 119/59
[2019-08-12] VITALS: BP 108/45
[2019-08-12 06:35] LABS: CREATININE 1.33 mg/dL (0.55-1.02); POTASSIUM 3.9 mmol/L (3.5-5.1)
--- NOTE | 2019-08-12 07:46 | NUR ---
PATIENT C/O HEADACHE. MEDICATED WITH TYLENOL. WILL CHECK EFFECTIVENESS.
[2019-08-12 08:00] VITALS: BP 108/52
--- NOTE | 2019-08-12 09:00 | NUR ---
case management visits with patient, she stated she was being discharged to home today, discussed with her VNA and she declined, she stated she was going to do outpatient therapy, no other needs at this time
[2019-08-12] MEDS ORDERED: CYCLOBENZAPRINE10 MG PO (09:14)
[2019-08-12] MEDS ORDERED: PREDNISONE10 MG PO (09:14)
[2019-08-12] MEDS ORDERED: NORCO 5-325 TA1 EACH PO (09:14)
--- NOTE | 2019-08-12 11:39 | NUR ---
PT BEING DISCHARGED. DISCHAGRE INSTRUCTIONS GIVEN. PT VOICED UNDERSTANDING. PT GIVEN PRINTED SCRIPT FOR PAIN AND OT/PT. PT LEFT FLOOR VIA WHEELCHAIR
--- NOTE | 2019-08-12 16:02 | NUR ---
PHYSICAL THERAPY CO-SIGN I approve of the Physical Therapy notes written above. Morena Plata, PT, DPT
== END 2019-08-12 11:39 | disposition home or self-care (01) | DRG 347 ==
LOC: ED 09:55 → EDHOLD 11:25 → 4E 13:27 → EDHOLD 13:27 → 4E 13:36
PROVIDERS: Family Medicine; Hospitalist; Nurse Practitioner Family; ADMIT Internal Medicine
DX: M51.24 Other intervertebral disc displacement, thoracic region (principal); N18.3 Chronic kidney disease, stage 3 (moderate); I25.10 Atherosclerotic heart disease of native coronary artery without angina pectoris; M79.7 Fibromyalgia; E11.65 Type 2 diabetes mellitus with hyperglycemia; M81.0 Age-related osteoporosis without current pathological fracture; E78.2 Mixed hyperlipidemia; E11.41 Type 2 diabetes mellitus with diabetic mononeuropathy; M19.90 Unspecified osteoarthritis, unspecified site; K58.9 Irritable bowel syndrome, unspecified; F41.9 Anxiety disorder, unspecified; E66.01 Morbid (severe) obesity due to excess calories; K21.9 Gastro-esophageal reflux disease without esophagitis; E87.8 Other disorders of electrolyte and fluid balance, not elsewhere classified; F33.9 Major depressive disorder, recurrent, unspecified; I12.9 Hypertensive chronic kidney disease with stage 1 through stage 4 chronic kidney disease, or unspecified chronic kidney disease; E11.22 Type 2 diabetes mellitus with diabetic chronic kidney disease; Z79.4 Long term (current) use of insulin; I25.2 Old myocardial infarction; Z88.8 Allergy status to other drugs, medicaments and biological substances; Z88.5 Allergy status to narcotic agent; Z91.041 Radiographic dye allergy status; Z90.49 Acquired absence of other specified parts of digestive tract; Z90.710 Acquired absence of both cervix and uterus; Z98.61 Coronary angioplasty status; Z82.49 Family history of ischemic heart disease and other diseases of the circulatory system; Z80.3 Family history of malignant neoplasm of breast; Z83.3 Family history of diabetes mellitus; Z82.3 Family history of stroke; Z82.5 Family history of asthma and other chronic lower respiratory diseases; Z83.2 Family history of diseases of the blood and blood-forming organs and certain disorders involving the immune mechanism; Z79.899 Other long term (current) drug therapy; Z68.41 Body mass index [BMI] 40.0-44.9, adult

== ENCOUNTER 2019-09-20 23:00 | Emergency (ER) | payer OTHER ==
[~2019-09-20] VITALS: Ht 165.1 cm; Wt 114.3 kg
[~2019-09-20 23:00] MED LIST changes: +CYCLOBENZAPRINE10 MG PO; +PREDNISONE10 MG PO
[2019-09-20 23:01] VITALS: BP 134/61
[2019-09-21] MEDS ORDERED: ZITHROMAX250 MG PO (00:28)
== END 2019-09-21 00:44 | disposition home or self-care (01) ==
LOC: ED 23:00
DX: R05 Cough (principal); M54.6 Pain in thoracic spine; R07.81 Pleurodynia; M19.90 Unspecified osteoarthritis, unspecified site; G89.29 Other chronic pain; E11.9 Type 2 diabetes mellitus without complications; I25.10 Atherosclerotic heart disease of native coronary artery without angina pectoris; K21.9 Gastro-esophageal reflux disease without esophagitis; M79.7 Fibromyalgia; I25.2 Old myocardial infarction; I10 Essential (primary) hypertension; Z88.8 Allergy status to other drugs, medicaments and biological substances; Z88.6 Allergy status to analgesic agent; Z79.899 Other long term (current) drug therapy; Z79.4 Long term (current) use of insulin

== ENCOUNTER → 2020-11-02 | Outpatient (CLI) | payer SELFPAY ==
[~2020-11-02] MED LIST changes: +MACROBID100 M1 PO; +ZITHROMAX250 MG PO
== END | disposition home or self-care (01) ==
LOC: COVID19 12:35
PROVIDERS: ATTEND Internal Medicine
DX: U07.1 COVID-19 (principal)

== ENCOUNTER 2020-12-05 12:32 | Emergency (ER) | payer MEDICARE, MEDICAID ==
[~2020-12-05] VITALS: Wt 108.0 kg
[~2020-12-05 12:32] MED LIST changes: -MACROBID100 M1 PO
[2020-12-05 12:37] VITALS: BP 126/46
[2020-12-05 13:46] LABS: BILIRUBIN Negative (Negative); BLOOD Negative (Negative); CLARITY Clear (Clear); COLOR Yellow (Yellow); GLUCOSE Negative (Negative); KETONE Negative (Negative); LEUKO ESTERASE 2+ (Negative); NITRITE Negative (Negative); PH 6.5 (4.5-8.0)
[2020-12-05 13:53] LABS: BACTERIA 2+
[2020-12-05] MEDS ORDERED: MACROBID100 M1 PO (14:53)
== END 2020-12-05 14:53 | disposition home or self-care (01) ==
LOC: ED 12:32
PROVIDERS: Emergency Medicine
DX: N39.0 Urinary tract infection, site not specified (principal); M54.9 Dorsalgia, unspecified; E11.9 Type 2 diabetes mellitus without complications; I10 Essential (primary) hypertension; I25.10 Atherosclerotic heart disease of native coronary artery without angina pectoris; K21.9 Gastro-esophageal reflux disease without esophagitis; M19.90 Unspecified osteoarthritis, unspecified site; F41.9 Anxiety disorder, unspecified; I25.2 Old myocardial infarction; F32.9 Major depressive disorder, single episode, unspecified; Z88.8 Allergy status to other drugs, medicaments and biological substances; Z88.5 Allergy status to narcotic agent; Z91.041 Radiographic dye allergy status; Z79.899 Other long term (current) drug therapy; Z79.4 Long term (current) use of insulin; Z90.49 Acquired absence of other specified parts of digestive tract; Z98.890 Other specified postprocedural states; Z90.711 Acquired absence of uterus with remaining cervical stump

== ENCOUNTER → 2021-01-17 | Outpatient (CLI) | payer MEDICARE ==
[~2021-01-17] MED LIST changes: +MACROBID100 M1 PO
[2021-01-17 14:02] LABS: BASO % 0.4 % (0.0-1.0); EOS # 0.2 10*3/uL (0.0-0.4); EOS % 2.1 % (1.0-4.0); HEMATOCRIT 39.8 % (37.0-47.0); LYMPH # 2.3 10*3/uL (1.3-4.4); LYMPH % 30.5 % (27.0-41.0); MEAN CELL VOLUME 88.6 fl (81.0-99.0); MEAN CORPUSCULAR HGB CONC 32.7 g/dl (33.0-37.0); MEAN PLATELET VOLUME 10.8 fl (9.6-12.3); MONO # 0.5 10*3/uL (0.1-1.0); MONO % 6.7 % (3.0-9.0); NEUT # 4.4 10*3/uL (2.3-7.9); PLATELET COUNT AUTOMATED 239 10*3/uL (130-400); RED BLOOD COUNT 4.49 10*6/uL (4.10-5.10); RED CELL DISTRI WIDTH 14.7 % (0-14.5); WHITE BLOOD COUNT 7.5 10*3/uL (4.8-10.8)
[2021-01-17 14:33] LABS: ALBUMIN 3.2 gm/dl (3.1-4.5); CREATININE 1.19 mg/dL (0.55-1.02); FREE T4 1.07 ng/dl (0.76-1.46); TOTAL PROTEIN 7.5 gm/dL (6.4-8.2)
[2021-01-17 14:38] LABS: THYROID STIM HORMONE (HS) 2.32 uIU/ml (0.358-4.75)
[2021-01-17 14:54] LABS: VITAMIN D, 25-HYDROXY 19.9 ng/mL (30-100)
== END | disposition home or self-care (01) ==
LOC: LAB 13:24
PROVIDERS: ATTEND Internal Medicine
DX: I10 Essential (primary) hypertension (principal); E11.9 Type 2 diabetes mellitus without complications; E87.5 Hyperkalemia; E55.9 Vitamin D deficiency, unspecified; D52.9 Folate deficiency anemia, unspecified; D51.9 Vitamin B12 deficiency anemia, unspecified; R53.81 Other malaise

== ENCOUNTER → 2021-02-26 | Outpatient (CLI) | payer MEDICARE | END | disposition home or self-care (01) | LOC: CARD 02-12 00:05 | PROVIDERS: ATTEND Internal Medicine | DX: R06.02 Shortness of breath (principal) ==

== ENCOUNTER → 2021-08-20 | Outpatient (CLI) | payer MEDICARE | END | disposition home or self-care (01) | LOC: COVID19 15:20 | PROVIDERS: ATTEND Internal Medicine | DX: Z11.52 Encounter for screening for COVID-19 (principal) ==

== ENCOUNTER → 2021-08-30 | Outpatient (CLI) | payer MEDICARE | END | disposition home or self-care (01) | LOC: RAD 15:42 | PROVIDERS: ATTEND Internal Medicine | DX: R05.3 Chronic cough (principal) ==

== ENCOUNTER → 2022-02-20 | Outpatient (CLI) | payer OTHER ==
[~2022-02-20] MED LIST changes: +ASPIRIN ADULT L81 M2 PO; -BASAGLAR SC; +COZAAR25 M1 PO; +Carafate1 GM PO; +INSULIN LI100 UNIT/3 SQ; +LANTUS SOL100 UNIT/1 SC; +NEURONTIN100 MG PO; +VITAMIN B1250 MCG PO; +VITAMIN C500 M4 PO; +ZINC50 M3 PO
== END | disposition home or self-care (01) ==
LOC: CARD 01-23 00:54
PROVIDERS: ATTEND Internal Medicine Cardiovascular Disease
DX: I25.118 Atherosclerotic heart disease of native coronary artery with other forms of angina pectoris (principal); E07.9 Disorder of thyroid, unspecified

== ENCOUNTER 2022-04-20 10:08 | Emergency (ER) | payer OTHER ==
[~2022-04-20] VITALS: Wt 117.0 kg
[2022-04-20 10:25] VITALS: BP 133/54
[2022-04-20 10:40] LABS: BASO % 0.4 % (0.0-1.0); EOS # 0.1 10*3/uL (0.0-0.4); EOS % 1.4 % (1.0-4.0); HEMATOCRIT 38.5 % (37.0-47.0); LYMPH # 1.9 10*3/uL (1.3-4.4); LYMPH % 23.3 % (27.0-41.0); MEAN CELL VOLUME 90.4 fl (81.0-99.0); MEAN CORPUSCULAR HGB 30.3 pg (27.0-31.0); MEAN CORPUSCULAR HGB CONC 33.5 g/dl (33.0-37.0); MEAN PLATELET VOLUME 10.3 fl (9.6-12.3); MONO # 0.5 10*3/uL (0.1-1.0); MONO % 6.4 % (3.0-9.0); NEUT # 5.7 10*3/uL (2.3-7.9); NEUT % 68.1 % (47.0-73.0); PLATELET COUNT AUTOMATED 221 10*3/uL (130-400); RED BLOOD COUNT 4.26 10*6/uL (4.10-5.10); RED CELL DISTRI WIDTH 13.8 % (0-14.5); WHITE BLOOD COUNT 8.3 10*3/uL (4.8-10.8)
[2022-04-20 10:53] LABS: ACT PARTIAL THROMBO TIME 24.8 SECONDS (20.0-32.1)
[2022-04-20 10:55] LABS: ALKALINE PHOSPHATASE 52 U/L (45-117); BUN 14 mg/dl (7-24); CHLORIDE 110 mmol/L (98-107); CREATININE 1.05 mg/dL (0.55-1.02); POTASSIUM 3.8 mmol/L (3.5-5.1); SGOT/AST 23 IU/L (3-35); SGPT/ALT 19 U/L (12-78); SODIUM 140 mmol/L (136-145)
[2022-04-20] MEDS ORDERED: ZITHROMAX250 MG PO (11:39)
== END 2022-04-20 12:37 | disposition home or self-care (01) ==
LOC: ED 10:08
PROVIDERS: Internal Medicine
DX: J32.8 Other chronic sinusitis (principal); Z88.8 Allergy status to other drugs, medicaments and biological substances; Z79.899 Other long term (current) drug therapy; Z90.710 Acquired absence of both cervix and uterus; Z90.49 Acquired absence of other specified parts of digestive tract; Z98.890 Other specified postprocedural states

== ENCOUNTER 2022-08-15 10:14 | Inpatient (IN) | payer OTHER ==
[~2022-08-15] VITALS: Ht 170.2 cm; Wt 115.4 kg
[2022-08-15 10:17] VITALS: BP 159/57
[2022-08-15 10:51] LABS: BASO % 0.4 % (0.0-1.0); EOS # 0.1 10*3/uL (0.0-0.4); EOS % 1.7 % (1.0-4.0); LYMPH # 2.9 10*3/uL (1.3-4.4); LYMPH % 37.9 % (27.0-41.0); MEAN CORPUSCULAR HGB CONC 33.7 g/dl (33.0-37.0); MEAN PLATELET VOLUME 10.2 fl (9.6-12.3); MONO # 0.4 10*3/uL (0.1-1.0); MONO % 5.8 % (3.0-9.0); NEUT # 4.1 10*3/uL (2.3-7.9); NEUT % 54.1 % (47.0-73.0); PLATELET COUNT AUTOMATED 193 10*3/uL (130-400); RED BLOOD COUNT 4.27 10*6/uL (4.10-5.10); RED CELL DISTRI WIDTH 13.3 % (0-14.5); WHITE BLOOD COUNT 7.6 10*3/uL (4.8-10.8)
[2022-08-15 11:01] LABS: ACT PARTIAL THROMBO TIME 24.8 SECONDS (20.0-32.1)
[2022-08-15 11:11] LABS: ALKALINE PHOSPHATASE 134 U/L (45-117); BUN 10 mg/dl (7-24); CHLORIDE 111 mmol/L (98-107); CREATININE 0.85 mg/dL (0.55-1.02); POTASSIUM 3.7 mmol/L (3.5-5.1); SGOT/AST 19 IU/L (3-35); SGPT/ALT 22 U/L (12-78); SODIUM 142 mmol/L (136-145)
[2022-08-15 11:17] VITALS: BP 146/70
[2022-08-15 13:18] VITALS: BP 141/67
[2022-08-15 15:24] VITALS: BP 142/70
[2022-08-15 17:39] VITALS: BP 128/68; BP 146/68
[2022-08-15] MEDS ORDERED: ZETIA10 MG PO (17:51)
[2022-08-15] MEDS ORDERED: PAMELOR50 MG PO (17:51)
[2022-08-15] MEDS ORDERED: PROTONIX40 MG IV (19:03)
[2022-08-15] MEDS ORDERED: Lovenox40 MG/0.4 SQ (19:05)
[2022-08-15] MEDS ORDERED: ONDANSETRON HYDR4 M1 IV (19:08)
[2022-08-15 22:23] VITALS: BP 134/76
[2022-08-16] VITALS: BP 155/79
[2022-08-16 05:56] LABS: ALKALINE PHOSPHATASE 132 U/L (45-117); BUN 9 mg/dl (7-24); CHLORIDE 111 mmol/L (98-107); CREATININE 0.87 mg/dL (0.55-1.02); POTASSIUM 3.5 mmol/L (3.5-5.1); SGOT/AST 20 IU/L (3-35); SGPT/ALT 21 U/L (12-78); SODIUM 145 mmol/L (136-145); TOTAL PROTEIN 7.1 gm/dL (6.4-8.2)
[2022-08-16 06:13] LABS: BASO % 0.5 % (0.0-1.0); EOS # 0.1 10*3/uL (0.0-0.4); EOS % 1.1 % (1.0-4.0); HEMATOCRIT 40.1 % (37.0-47.0); LYMPH # 3.4 10*3/uL (1.3-4.4); LYMPH % 45.8 % (27.0-41.0); MEAN CELL VOLUME 91.1 fl (81.0-99.0); MEAN CORPUSCULAR HGB 29.5 pg (27.0-31.0); MEAN CORPUSCULAR HGB CONC 32.4 g/dl (33.0-37.0); MEAN PLATELET VOLUME 10.9 fl (9.6-12.3); MONO # 0.5 10*3/uL (0.1-1.0); MONO % 7.2 % (3.0-9.0); NEUT # 3.4 10*3/uL (2.3-7.9); NEUT % 45.3 % (47.0-73.0); PLATELET COUNT AUTOMATED 189 10*3/uL (130-400); RED CELL DISTRI WIDTH 13.5 % (0-14.5); WHITE BLOOD COUNT 7.5 10*3/uL (4.8-10.8)
[2022-08-16 08:00] VITALS: BP 150/69
[2022-08-16 12:00] VITALS: BP 129/51
[2022-08-16 16:00] VITALS: BP 143/59
[2022-08-16 20:00] VITALS: BP 108/59
[2022-08-17] VITALS: BP 106/58
[2022-08-17 08:00] VITALS: BP 134/61
[2022-08-17 12:00] VITALS: BP 118/57
[2022-08-17 16:00] VITALS: BP 119/68
[2022-08-17 20:00] VITALS: BP 110/58
[2022-08-17 21:58] LABS: BILIRUBIN Negative (Negative); BLOOD Negative (Negative); CLARITY Clear (Clear); COLOR Yellow (Yellow); GLUCOSE Negative (Negative); KETONE Negative (Negative); LEUKO ESTERASE 1+ (Negative); NITRITE Negative (Negative); SPECIFIC GRAVITY 1.015 (1.001-1.030)
[2022-08-17 22:27] LABS: BACTERIA 1+
[2022-08-18] VITALS (8 sets, daily range): BP systolic 122–127; BP diastolic 30–69
[2022-08-18 06:50] LABS: BASO % 0.3 % (0.0-1.0); EOS # 0.1 10*3/uL (0.0-0.4); EOS % 1.9 % (1.0-4.0); HEMATOCRIT 39.8 % (37.0-47.0); LYMPH # 2.9 10*3/uL (1.3-4.4); LYMPH % 43.4 % (27.0-41.0); MEAN CELL VOLUME 92.3 fl (81.0-99.0); MEAN CORPUSCULAR HGB 30.2 pg (27.0-31.0); MEAN CORPUSCULAR HGB CONC 32.7 g/dl (33.0-37.0); MEAN PLATELET VOLUME 10.7 fl (9.6-12.3); MONO # 0.5 10*3/uL (0.1-1.0); MONO % 7.7 % (3.0-9.0); NEUT # 3.1 10*3/uL (2.3-7.9); NEUT % 46.4 % (47.0-73.0); RED BLOOD COUNT 4.31 10*6/uL (4.10-5.10); RED CELL DISTRI WIDTH 13.4 % (0-14.5); WHITE BLOOD COUNT 6.8 10*3/uL (4.8-10.8)
[2022-08-18 06:51] LABS: PLATELET COUNT AUTOMATED 178 10*3/uL (130-400)
[2022-08-18 06:53] LABS: BUN 11 mg/dl (7-24); CHLORIDE 108 mmol/L (98-107); CREATININE 0.89 mg/dL (0.55-1.02); POTASSIUM 3.9 mmol/L (3.5-5.1); SODIUM 140 mmol/L (136-145)
[2022-08-18] MEDS ORDERED: SENOKOT-S TABL1 EACH PO (13:11)
[2022-08-18] MEDS ORDERED: CIPROFLOXACIN500 M4 PO (13:17)
== END 2022-08-18 15:53 | disposition home or self-care (01) | DRG 392 ==
LOC: ED 10:14 → 4E 17:18 → EDHOLD 17:18 → 4E 23:05
PROVIDERS: Emergency Medicine; ADMIT Internal Medicine; ATTEND Internal Medicine
PROC: 0DB78ZX Excision of Stomach, Pylorus, Via Natural or Artificial Opening Endoscopic, Diagnostic (ICD-10-PCS; principal; 2022-08-18)
DX: K29.00 Acute gastritis without bleeding (principal); E44.0 Moderate protein-calorie malnutrition; I25.10 Atherosclerotic heart disease of native coronary artery without angina pectoris; E11.65 Type 2 diabetes mellitus with hyperglycemia; K21.9 Gastro-esophageal reflux disease without esophagitis; K58.9 Irritable bowel syndrome, unspecified; K76.0 Fatty (change of) liver, not elsewhere classified; M79.7 Fibromyalgia; F32.9 Major depressive disorder, single episode, unspecified; I10 Essential (primary) hypertension; E55.9 Vitamin D deficiency, unspecified; F41.9 Anxiety disorder, unspecified; E78.2 Mixed hyperlipidemia; E53.8 Deficiency of other specified B group vitamins; K22.2 Esophageal obstruction; E87.8 Other disorders of electrolyte and fluid balance, not elsewhere classified; Z88.8 Allergy status to other drugs, medicaments and biological substances; Z88.6 Allergy status to analgesic agent; Z91.041 Radiographic dye allergy status; Z90.49 Acquired absence of other specified parts of digestive tract; Z90.710 Acquired absence of both cervix and uterus; Z82.49 Family history of ischemic heart disease and other diseases of the circulatory system; Z82.3 Family history of stroke; Z83.6 Family history of other diseases of the respiratory system; Z80.3 Family history of malignant neoplasm of breast; Z79.4 Long term (current) use of insulin; Z68.39 Body mass index [BMI] 39.0-39.9, adult

== ENCOUNTER → 2023-05-05 | Outpatient (CLI) | payer OTHER ==
[~2023-05-05] MED LIST changes: +CIPROFLOXACIN500 M4 PO; +Lovenox40 MG/0.4 SQ; +ONDANSETRON HYDR4 M1 IV; +PROTONIX40 MG IV; +SENOKOT-S TABL1 EACH PO
[2023-05-05 16:58] LABS: BASO % 0.5 % (0.0-1.0); EOS # 0.2 10*3/uL (0.0-0.4); HEMATOCRIT 40.4 % (37.0-47.0); LYMPH # 2.7 10*3/uL (1.3-4.4); LYMPH % 36.1 % (27.0-41.0); MEAN CELL VOLUME 89.6 fl (81.0-99.0); MEAN CORPUSCULAR HGB 30.2 pg (27.0-31.0); MEAN CORPUSCULAR HGB CONC 33.7 g/dl (33.0-37.0); MEAN PLATELET VOLUME 10.4 fl (9.6-12.3); MONO # 0.5 10*3/uL (0.1-1.0); MONO % 6.6 % (3.0-9.0); NEUT # 4.1 10*3/uL (2.3-7.9); NEUT % 54.5 % (47.0-73.0); PLATELET COUNT AUTOMATED 192 10*3/uL (130-400); RED BLOOD COUNT 4.51 10*6/uL (4.10-5.10); RED CELL DISTRI WIDTH 13.7 % (0-14.5); WHITE BLOOD COUNT 7.5 10*3/uL (4.8-10.8)
[2023-05-05 17:36] LABS: VITAMIN D, 25-HYDROXY 37.9 ng/mL (30-100)
== END | disposition home or self-care (01) ==
LOC: LAB 16:38
PROVIDERS: ATTEND Nurse Practitioner Family
DX: I10 Essential (primary) hypertension (principal); E11.42 Type 2 diabetes mellitus with diabetic polyneuropathy; E78.2 Mixed hyperlipidemia; K21.9 Gastro-esophageal reflux disease without esophagitis; I25.10 Atherosclerotic heart disease of native coronary artery without angina pectoris; E55.9 Vitamin D deficiency, unspecified

== ENCOUNTER → 2023-08-21 | Outpatient (CLI) | payer OTHER ==
[2023-08-21 15:36] LABS: ALKALINE PHOSPHATASE 43 U/L (46-116); BUN 9 mg/dl (9-23); CHLORIDE 112 mmol/L (98-107); FREE T4 1.19 ng/dl (0.89-1.76); POTASSIUM 3.7 mmol/L (3.4-5.1); SGPT/ALT 8 U/L (5-49); TOTAL PROTEIN 6.9 gm/dL (6.0-8.0)
[2023-08-24 13:05] LABS: ANTISCLERODERMA-70 AB <0.2 AI (0.0-0.9)
== END | disposition home or self-care (01) ==
LOC: LAB 14:49
PROVIDERS: ATTEND Internal Medicine
DX: E11.43 Type 2 diabetes mellitus with diabetic autonomic (poly)neuropathy (principal); M79.642 Pain in left hand

== ENCOUNTER 2023-09-17 18:09 | Emergency (ER) | payer OTHER ==
[~2023-09-17] VITALS: Ht 170.1 cm; Wt 113.4 kg
[2023-09-17 18:22] VITALS: BP 144/55
[2023-09-17 19:35] LABS: BASO % 0.4 % (0.0-1.0); EOS # 0.1 10*3/uL (0.0-0.4); EOS % 1.8 % (1.0-4.0); HEMATOCRIT 37.4 % (37.0-47.0); LYMPH # 2.5 10*3/uL (1.3-4.4); LYMPH % 33.5 % (27.0-41.0); MEAN CELL VOLUME 92.3 fl (81.0-99.0); MEAN CORPUSCULAR HGB 30.1 pg (27.0-31.0); MEAN CORPUSCULAR HGB CONC 32.6 g/dl (33.0-37.0); MEAN PLATELET VOLUME 10.3 fl (9.6-12.3); MONO # 0.5 10*3/uL (0.1-1.0); MONO % 6.7 % (3.0-9.0); NEUT # 4.2 10*3/uL (2.3-7.9); NEUT % 57.3 % (47.0-73.0); PLATELET COUNT AUTOMATED 269 10*3/uL (130-400); RED BLOOD COUNT 4.05 10*6/uL (4.10-5.10); RED CELL DISTRI WIDTH 13.9 % (0-14.5); WHITE BLOOD COUNT 7.4 10*3/uL (4.8-10.8)
[2023-09-17 19:56] LABS: ALKALINE PHOSPHATASE 42 U/L (46-116); BUN 9 mg/dl (9-23); CHLORIDE 111 mmol/L (98-107); LIPASE 33 U/L (12-53); POTASSIUM 3.6 mmol/L (3.4-5.1); SGPT/ALT 9 U/L (5-49)
[2023-09-17 20:16] LABS: ACT PARTIAL THROMBO TIME 25.2 SECONDS (20.0-32.1)
[2023-09-17 20:55] LABS: BILIRUBIN Negative (Negative); BLOOD Negative (Negative); CLARITY Clear (Clear); COLOR Yellow (Yellow); GLUCOSE Negative (Negative); KETONE Negative (Negative); LEUKO ESTERASE Trace (Negative); NITRITE Negative (Negative); SPECIFIC GRAVITY 1.015 (1.001-1.030)
[2023-09-17 21:19] LABS: BACTERIA 1+; MUCOUS 1+; RBC 0-2 rbc/hpf (0-2)
[2023-09-17] MEDS ORDERED: PYRIDIUM100 MG PO (21:41)
[2023-09-17] MEDS ORDERED: CIPRO500 MG PO (21:41)
== END 2023-09-17 21:52 | disposition home or self-care (01) ==
LOC: ED 18:09
PROVIDERS: Internal Medicine
DX: N39.0 Urinary tract infection, site not specified (principal); R10.2 Pelvic and perineal pain; E11.9 Type 2 diabetes mellitus without complications; I25.10 Atherosclerotic heart disease of native coronary artery without angina pectoris; K21.9 Gastro-esophageal reflux disease without esophagitis; M19.90 Unspecified osteoarthritis, unspecified site; F32.A Depression, unspecified; I10 Essential (primary) hypertension; F41.9 Anxiety disorder, unspecified; I25.2 Old myocardial infarction; M79.10 Myalgia, unspecified site; Z88.8 Allergy status to other drugs, medicaments and biological substances; Z88.5 Allergy status to narcotic agent; Z98.890 Other specified postprocedural states; Z95.5 Presence of coronary angioplasty implant and graft; Z90.710 Acquired absence of both cervix and uterus; Z90.49 Acquired absence of other specified parts of digestive tract

== ENCOUNTER → 2023-09-24 | Outpatient (CLI) | payer OTHER ==
[~2023-09-24] MED LIST changes: +CIPRO500 MG PO; +PYRIDIUM100 MG PO
== END | disposition home or self-care (01) ==
LOC: CARD 09-21 11:30
PROVIDERS: ATTEND Physician Assistant
DX: I34.0 Nonrheumatic mitral (valve) insufficiency (principal); I25.10 Atherosclerotic heart disease of native coronary artery without angina pectoris; I10 Essential (primary) hypertension

== ENCOUNTER → 2023-11-13 | Outpatient (CLI) | payer OTHER | END | disposition home or self-care (01) | LOC: US 14:00 | PROVIDERS: ATTEND Internal Medicine Nephrology | DX: M79.89 Other specified soft tissue disorders (principal); M79.604 Pain in right leg; M79.605 Pain in left leg ==

== ENCOUNTER 2023-11-19 13:58 | Emergency (ER) | payer OTHER ==
[~2023-11-19] VITALS: Ht 170.1 cm; Wt 109.3 kg
[2023-11-19 14:07] VITALS: BP 140/53
[2023-11-19] MEDS ORDERED: ALDACTONE25 M1 PO (14:16)
[2023-11-19] MEDS ORDERED: HYDROCHLOROTHIA25 M1 PO (14:17)
[2023-11-19 14:32] LABS: BASO % 0.3 % (0.0-1.0); EOS # 0.2 10*3/uL (0.0-0.4); EOS % 2.9 % (1.0-4.0); HEMATOCRIT 38.5 % (37.0-47.0); LYMPH # 2.2 10*3/uL (1.3-4.4); LYMPH % 35.2 % (27.0-41.0); MEAN CELL VOLUME 91.7 fl (81.0-99.0); MEAN CORPUSCULAR HGB 29.3 pg (27.0-31.0); MEAN CORPUSCULAR HGB CONC 31.9 g/dl (33.0-37.0); MEAN PLATELET VOLUME 10.4 fl (9.6-12.3); MONO # 0.4 10*3/uL (0.1-1.0); MONO % 7.1 % (3.0-9.0); NEUT # 3.4 10*3/uL (2.3-7.9); NEUT % 54.2 % (47.0-73.0); PLATELET COUNT AUTOMATED 206 10*3/uL (130-400); RED CELL DISTRI WIDTH 14.4 % (0-14.5); WHITE BLOOD COUNT 6.2 10*3/uL (4.8-10.8)
[2023-11-19] MEDS ORDERED: HUMALOG 751 UNIT/0.0 SC (14:33)
[2023-11-19 14:43] LABS: ACT PARTIAL THROMBO TIME 23.9 SECONDS (20.0-32.1)
[2023-11-19 14:52] LABS: POTASSIUM 3.5 mmol/L (3.4-5.1); TOTAL PROTEIN 6.8 gm/dL (6.0-8.0)
[2023-11-19 15:27] LABS: BILIRUBIN Negative (Negative); BLOOD Negative (Negative); CLARITY Clear (Clear); COLOR Yellow (Yellow); GLUCOSE Negative (Negative); KETONE Negative (Negative); LEUKO ESTERASE Trace (Negative); NITRITE Negative (Negative); SPECIFIC GRAVITY <= 1.005 (1.001-1.030); UROBILINOGEN 0.2 E.U./dl (0.0-1.0)
[2023-11-19 15:39] LABS: BACTERIA 1+; RBC 0-2 rbc/hpf (0-2)
[2023-11-19] MEDS ORDERED: CYCLOBENZAPRINE5 M3 PO (17:06)
== END 2023-11-19 17:43 | disposition home or self-care (01) ==
LOC: ED 13:58
PROVIDERS: Internal Medicine
DX: R07.89 Other chest pain (principal); F15.93 Other stimulant use, unspecified with withdrawal; R20.0 Anesthesia of skin; M62.838 Other muscle spasm; Z88.8 Allergy status to other drugs, medicaments and biological substances; Z91.041 Radiographic dye allergy status; Z88.5 Allergy status to narcotic agent; Z79.899 Other long term (current) drug therapy; Z79.82 Long term (current) use of aspirin; Z79.4 Long term (current) use of insulin; Z90.49 Acquired absence of other specified parts of digestive tract; Z90.711 Acquired absence of uterus with remaining cervical stump

== ENCOUNTER 2024-01-01 13:54 | Emergency (ER) | payer OTHER ==
[~2024-01-01] VITALS: Ht 170.1 cm; Wt 112.0 kg
[~2024-01-01 13:54] MED LIST changes: +ALDACTONE25 M1 PO; +CYCLOBENZAPRINE5 M3 PO; +HUMALOG 751 UNIT/0.0 SC; +HYDROCHLOROTHIA25 M1 PO
[2024-01-01 14:08] VITALS: BP 160/66
[2024-01-01] MEDS ORDERED: Pantoprazole Sodium 40 MG VIAL IV ONE (14:20)
[2024-01-01] MEDS ORDERED: FAMOTIDINE 50 ML IV ONE (14:20)
[2024-01-01] MEDS ORDERED: SODIUM CHLORIDE 0.9% 1,000 ML IV ONE (14:20)
[2024-01-01] MEDS ORDERED: SUCRALFATE 1 GM TAB PO ONE (14:20)
[2024-01-01] MEDS ORDERED: LIPITOR40 MG PO (14:44)
[2024-01-01] MEDS ORDERED: PANTOPRAZOLE SO40 MG PO (14:44)
[2024-01-01 14:48] LABS: BASO % 0.5 % (0.0-1.0); EOS # 0.1 10*3/uL (0.0-0.4); EOS % 1.7 % (1.0-4.0); HEMATOCRIT 37.7 % (37.0-47.0); LYMPH # 2.1 10*3/uL (1.3-4.4); LYMPH % 31.9 % (27.0-41.0); MEAN CELL VOLUME 91.3 fl (81.0-99.0); MEAN CORPUSCULAR HGB CONC 32.9 g/dl (33.0-37.0); MEAN PLATELET VOLUME 10.8 fl (9.6-12.3); MONO # 0.4 10*3/uL (0.1-1.0); MONO % 6.6 % (3.0-9.0); NEUT # 3.9 10*3/uL (2.3-7.9); NEUT % 59.3 % (47.0-73.0); PLATELET COUNT AUTOMATED 173 10*3/uL (130-400); RED BLOOD COUNT 4.13 10*6/uL (4.10-5.10); RED CELL DISTRI WIDTH 14.2 % (0-14.5); WHITE BLOOD COUNT 6.5 10*3/uL (4.8-10.8)
[2024-01-01 15:07] LABS: ALKALINE PHOSPHATASE 78 U/L (46-116); BUN 8 mg/dl (9-23); CHLORIDE 108 mmol/L (98-107); POTASSIUM 3.3 mmol/L (3.4-5.1); SGPT/ALT 8 U/L (5-49); TOTAL PROTEIN 6.5 gm/dL (6.0-8.0)
[2024-01-01] MEDS ORDERED: Lidocaine Hydrochloride 15 ML UDC PO ONE (15:10)
[2024-01-01] MEDS ORDERED: MG-AL HYDROXIDE/SIMETICONE 30 ML UDC PO ONE (15:10)
[2024-01-01] MEDS ORDERED: PEPCID20 MG PO (15:51)
[2024-01-09] MEDS ORDERED: NORTRIPTYLINE H25 M1 PO (16:29)
[2024-01-09] MEDS ORDERED: CARAFATE1 G1 PO (16:32)
[2024-01-09] MEDS ORDERED: HUMALOG100 UNIT/1 SC (17:31)
[2024-01-09] MEDS ORDERED: CLONAZEPAM1 MG PO (20:28)
[2024-01-10] MEDS ORDERED: K-TAB20 MEQ PO (07:01)
[2024-01-10] MEDS ORDERED: LASIX20 MG PO (07:01)
== END 2024-01-01 16:10 | disposition home or self-care (01) ==
LOC: ED 13:54
PROVIDERS: Emergency Medicine
DX: R07.89 Other chest pain (principal); K21.9 Gastro-esophageal reflux disease without esophagitis; I25.10 Atherosclerotic heart disease of native coronary artery without angina pectoris; E11.22 Type 2 diabetes mellitus with diabetic chronic kidney disease; I12.9 Hypertensive chronic kidney disease with stage 1 through stage 4 chronic kidney disease, or unspecified chronic kidney disease; N18.9 Chronic kidney disease, unspecified; E78.5 Hyperlipidemia, unspecified; M19.90 Unspecified osteoarthritis, unspecified site; M79.7 Fibromyalgia; I25.2 Old myocardial infarction; F41.9 Anxiety disorder, unspecified; F32.A Depression, unspecified; Z88.8 Allergy status to other drugs, medicaments and biological substances; Z88.5 Allergy status to narcotic agent; Z91.041 Radiographic dye allergy status; Z90.49 Acquired absence of other specified parts of digestive tract; Z90.710 Acquired absence of both cervix and uterus; Z95.5 Presence of coronary angioplasty implant and graft; Z98.890 Other specified postprocedural states

== ENCOUNTER → 2024-03-31 | Outpatient (CLI) | payer OTHER ==
[~2024-03-31] MED LIST changes: +HUMALOG100 UNIT/1 SC; +K-TAB20 MEQ PO; +LASIX20 MG PO; +LIPITOR40 MG PO; +NORTRIPTYLINE H25 M1 PO; +PANTOPRAZOLE SO40 MG PO; +PEPCID20 MG PO
== END | disposition home or self-care (01) ==
LOC: LAB 16:41
PROVIDERS: ATTEND Nurse Practitioner Family
DX: R30.0 Dysuria (principal)

== ENCOUNTER → 2024-04-06 | Outpatient (CLI) | payer OTHER ==
[2024-04-06 12:28] LABS: BASO % 0.4 % (0.0-1.0); EOS # 0.2 10*3/uL (0.0-0.4); EOS % 2.3 % (1.0-4.0); HEMATOCRIT 43.9 % (37.0-47.0); LYMPH # 3.1 10*3/uL (1.3-4.4); MEAN CELL VOLUME 90.9 fl (81.0-99.0); MEAN CORPUSCULAR HGB 30.6 pg (27.0-31.0); MEAN CORPUSCULAR HGB CONC 33.7 g/dl (33.0-37.0); MEAN PLATELET VOLUME 11.1 fl (9.6-12.3); MONO # 0.6 10*3/uL (0.1-1.0); NEUT # 5.4 10*3/uL (2.3-7.9); NEUT % 58.1 % (47.0-73.0); PLATELET COUNT AUTOMATED 194 10*3/uL (130-400); RED BLOOD COUNT 4.83 10*6/uL (4.10-5.10); RED CELL DISTRI WIDTH 13.6 % (0-14.5); WHITE BLOOD COUNT 9.2 10*3/uL (4.8-10.8)
[2024-04-06 13:00] LABS: ALKALINE PHOSPHATASE 99 U/L (46-116); BUN 11 mg/dl (9-23); CHLORIDE 105 mmol/L (98-107); CHOLESTEROL 84 mg/dL (<200); LDL CHOLESTEROL 21 mg/dL (9-159); POTASSIUM 3.7 mmol/L (3.4-5.1); SGPT/ALT 13 U/L (5-49); TOTAL PROTEIN 7.2 gm/dL (6.0-8.0); TRIGLYCERIDES 152 mg/dl (<150)
== END | disposition home or self-care (01) ==
LOC: LAB 12:03
PROVIDERS: ATTEND Nurse Practitioner Family
DX: E11.65 Type 2 diabetes mellitus with hyperglycemia (principal); E55.9 Vitamin D deficiency, unspecified; E78.2 Mixed hyperlipidemia; I10 Essential (primary) hypertension

== ENCOUNTER 2024-06-01 11:31 | Emergency (ER) | payer OTHER ==
[~2024-06-01] VITALS: Ht 170.1 cm; Wt 96.2 kg
[2024-06-01 11:36] VITALS: BP 136/57
[2024-06-01] MEDS ORDERED: ISOSORBIDE MON120 MG PO (11:37)
[2024-06-01] MEDS ORDERED: CARVEDILOL25 MG PO (11:37)
[2024-06-01] MEDS ORDERED: LOSARTAN POTASS25 M1 PO (11:39)
[2024-06-01] MEDS ORDERED: LURASIDONE HCL20 MG PO (11:40)
[2024-06-01] MEDS ORDERED: COL-RITE100 M1 PO (11:42)
[2024-06-01] MEDS ORDERED: TRULICITY0.75 MG/0. SC (11:45)
[2024-06-01] MEDS ORDERED: SODIUM CHLORIDE 0.9% 1,000 ML IV ONE (11:50)
[2024-06-01] MEDS ORDERED: Ketorolac Tromethamine 15 MG/ML VIAL IV ONE (11:50)
[2024-06-01] MEDS ORDERED: Ondansetron Hydrochloride 4 MG/2 ML VIAL IV ONE (11:50)
[2024-06-01 12:08] LABS: BASO % 0.4 % (0.0-1.0); EOS # 0.2 10*3/uL (0.0-0.4); EOS % 2.6 % (1.0-4.0); HEMATOCRIT 41.4 % (37.0-47.0); LYMPH # 2.5 10*3/uL (1.3-4.4); LYMPH % 31.1 % (27.0-41.0); MEAN CELL VOLUME 93.9 fl (81.0-99.0); MEAN CORPUSCULAR HGB 31.1 pg (27.0-31.0); MEAN CORPUSCULAR HGB CONC 33.1 g/dl (33.0-37.0); MEAN PLATELET VOLUME 10.4 fl (9.6-12.3); MONO # 0.6 10*3/uL (0.1-1.0); MONO % 7.5 % (3.0-9.0); NEUT # 4.7 10*3/uL (2.3-7.9); NEUT % 58.2 % (47.0-73.0); PLATELET COUNT AUTOMATED 181 10*3/uL (130-400); RED BLOOD COUNT 4.41 10*6/uL (4.10-5.10); RED CELL DISTRI WIDTH 13.1 % (0-14.5); WHITE BLOOD COUNT 8.1 10*3/uL (4.8-10.8)
[2024-06-01] MEDS ORDERED: LORazepam 1 MG TAB PO ONE (12:15)
[2024-06-01 12:30] LABS: BUN 10 mg/dl (9-23); CHLORIDE 105 mmol/L (98-107); LIPASE 43 U/L (12-53); POTASSIUM 3.1 mmol/L (3.4-5.1); SGPT/ALT 14 U/L (5-49)
[2024-06-01 13:36] LABS: BILIRUBIN Negative (Negative); BLOOD Negative (Negative); CLARITY Cloudy (Clear); COLOR Dark Yellow (Yellow); GLUCOSE Negative (Negative); KETONE Trace (Negative); LEUKO ESTERASE 1+ (Negative); NITRITE Negative (Negative); PH 6.5 (4.5-8.0); SPECIFIC GRAVITY >= 1.030 (1.001-1.030)
[2024-06-01 14:04] LABS: BACTERIA 1+; MUCOUS 1+; RBC 0-2 rbc/hpf (0-2); WBC 21-30 wbc/hpf (0-5)
[2024-06-01] MEDS ORDERED: ATIVAN1 MG PO (14:25)
[2024-06-01] MEDS ORDERED: CIPRO500 MG PO (14:46)
== END 2024-06-01 14:29 | disposition home or self-care (01) ==
LOC: ED 11:31
PROVIDERS: Nurse Practitioner Family
DX: F41.9 Anxiety disorder, unspecified (principal); N39.0 Urinary tract infection, site not specified; M79.661 Pain in right lower leg; R07.89 Other chest pain; R11.0 Nausea; E11.9 Type 2 diabetes mellitus without complications; I10 Essential (primary) hypertension; E78.5 Hyperlipidemia, unspecified; K21.9 Gastro-esophageal reflux disease without esophagitis; R10.9 Unspecified abdominal pain; I25.10 Atherosclerotic heart disease of native coronary artery without angina pectoris; M19.90 Unspecified osteoarthritis, unspecified site; I25.2 Old myocardial infarction; F32.A Depression, unspecified; M79.7 Fibromyalgia; Z88.8 Allergy status to other drugs, medicaments and biological substances; Z88.5 Allergy status to narcotic agent; Z91.041 Radiographic dye allergy status; Z90.49 Acquired absence of other specified parts of digestive tract; Z95.5 Presence of coronary angioplasty implant and graft; Z90.710 Acquired absence of both cervix and uterus; Z98.890 Other specified postprocedural states

== ENCOUNTER 2024-06-03 12:20 | Emergency (ER) | payer OTHER ==
[~2024-06-03] VITALS: Ht 165.1 cm; Wt 90.7 kg
[~2024-06-03 12:20] MED LIST changes: +ATIVAN1 MG PO; +CARVEDILOL25 MG PO; +COL-RITE100 M1 PO; +ISOSORBIDE MON120 MG PO; +LOSARTAN POTASS25 M1 PO; +LURASIDONE HCL20 MG PO; +TRULICITY0.75 MG/0. SC
[2024-06-03 13:25] LABS: BILIRUBIN Negative (Negative); BLOOD Negative (Negative); CLARITY Cloudy (Clear); COLOR Yellow (Yellow); GLUCOSE Negative (Negative); KETONE Trace (Negative); LEUKO ESTERASE 2+ (Negative); NITRITE Negative (Negative); SPECIFIC GRAVITY 1.015 (1.001-1.030)
[2024-06-03 13:25] LABS: BASO % 0.2 % (0.0-1.0); EOS # 0.1 10*3/uL (0.0-0.4); EOS % 1.6 % (1.0-4.0); HEMATOCRIT 39.4 % (37.0-47.0); LYMPH # 2.2 10*3/uL (1.3-4.4); MEAN CELL VOLUME 94.7 fl (81.0-99.0); MEAN CORPUSCULAR HGB CONC 32.7 g/dl (33.0-37.0); MEAN PLATELET VOLUME 10.4 fl (9.6-12.3); MONO # 0.6 10*3/uL (0.1-1.0); NEUT # 5.2 10*3/uL (2.3-7.9); NEUT % 64.1 % (47.0-73.0); PLATELET COUNT AUTOMATED 191 10*3/uL (130-400); RED BLOOD COUNT 4.16 10*6/uL (4.10-5.10); RED CELL DISTRI WIDTH 13.1 % (0-14.5); WHITE BLOOD COUNT 8.1 10*3/uL (4.8-10.8)
[2024-06-03 13:33] LABS: URINE AMPHETAMINES Negative (1000ng/ml); URINE BARBITURATES Negative (200ng/ml); URINE BENZODIAZEPINES Positive (200ng/ml); URINE CANNABINOIDS (THC) Negative (50ng/ml); URINE COCAINE Negative (300ng/ml); URINE METHADONE Negative (300ng/ml); URINE OPIATES Negative (300ng/ml); URINE PHENCYCLIDINE Negative (25ng/ml)
[2024-06-03 13:37] LABS: WBC 16-20 wbc/hpf (0-5)
[2024-06-03 13:38] LABS: BACTERIA 1+
[2024-06-03 13:46] LABS: BUN 12 mg/dl (9-23); CHLORIDE 104 mmol/L (98-107); CPK 51 U/L (34-171); POTASSIUM 3.3 mmol/L (3.4-5.1)
[2024-06-03 13:47] LABS: ETHYL ALCOHOL < 3.0 mg/dl (<3)
[2024-06-03] MEDS ORDERED: POTASSIUM CHLORIDE 20 MEQ TAB PO ONE (17:15)
[2024-06-03 20:27] VITALS: BP 110/50
== END 2024-06-03 23:30 ==
LOC: ED 12:20
PROVIDERS: Physician Assistant Medical
DX: F41.0 Panic disorder [episodic paroxysmal anxiety] (principal); F41.9 Anxiety disorder, unspecified; F32.A Depression, unspecified; E11.22 Type 2 diabetes mellitus with diabetic chronic kidney disease; I13.0 Hypertensive heart and chronic kidney disease with heart failure and stage 1 through stage 4 chronic kidney disease, or unspecified chronic kidney disease; N18.9 Chronic kidney disease, unspecified; I50.9 Heart failure, unspecified; K21.9 Gastro-esophageal reflux disease without esophagitis; I25.10 Atherosclerotic heart disease of native coronary artery without angina pectoris; M19.90 Unspecified osteoarthritis, unspecified site; I25.2 Old myocardial infarction; M79.7 Fibromyalgia; Z79.899 Other long term (current) drug therapy; Z88.8 Allergy status to other drugs, medicaments and biological substances; Z91.041 Radiographic dye allergy status; Z88.5 Allergy status to narcotic agent; Z90.49 Acquired absence of other specified parts of digestive tract; Z95.5 Presence of coronary angioplasty implant and graft; Z90.710 Acquired absence of both cervix and uterus; Z98.890 Other specified postprocedural states

== ENCOUNTER → 2024-09-20 | Outpatient (CLI) | payer OTHER ==
[2024-09-20 17:34] LABS: ALKALINE PHOSPHATASE 84 U/L (46-116); BUN 16 mg/dl (9-23); CHLORIDE 105 mmol/L (98-107); POTASSIUM 3.8 mmol/L (3.4-5.1); SGPT/ALT 14 U/L (5-49); TOTAL PROTEIN 7.3 gm/dL (6.0-8.0)
== END | disposition home or self-care (01) ==
LOC: LAB 15:48
PROVIDERS: ATTEND Student in an Organized Health Care Education/Training Program
DX: E11.65 Type 2 diabetes mellitus with hyperglycemia (principal)

== ENCOUNTER 2025-01-09 16:25 | Emergency (ER) | payer OTHER ==
[~2025-01-09] VITALS: Ht 170.1 cm; Wt 88.5 kg
[2025-01-09 16:35] VITALS: BP 115/71
[2025-01-09 17:05] LABS: BASO % 0.4 % (0.0-1.0); EOS # 0.1 10*3/uL (0.0-0.4); EOS % 1.3 % (1.0-4.0); HEMATOCRIT 43.3 % (37.0-47.0); MEAN CELL VOLUME 90.8 fl (81.0-99.0); MEAN CORPUSCULAR HGB 30.4 pg (27.0-31.0); MEAN CORPUSCULAR HGB CONC 33.5 g/dl (33.0-37.0); MEAN PLATELET VOLUME 10.3 fl (9.6-12.3); MONO # 0.5 10*3/uL (0.1-1.0); MONO % 5.7 % (3.0-9.0); NEUT # 6.4 10*3/uL (2.3-7.9); NEUT % 66.9 % (47.0-73.0); PLATELET COUNT AUTOMATED 196 10*3/uL (130-400); RED BLOOD COUNT 4.77 10*6/uL (4.10-5.10); RED CELL DISTRI WIDTH 13.1 % (0-14.5); WHITE BLOOD COUNT 9.5 10*3/uL (4.8-10.8)
[2025-01-09 17:24] LABS: BILIRUBIN Negative (Negative); BLOOD Negative (Negative); CLARITY Cloudy (Clear); COLOR Yellow (Yellow); GLUCOSE Negative (Negative); KETONE Trace (Negative); LEUKO ESTERASE 2+ (Negative); NITRITE Negative (Negative); SPECIFIC GRAVITY 1.025 (1.001-1.030)
[2025-01-09 17:34] LABS: BACTERIA 3+; RBC 0-2 rbc/hpf (0-2); WBC 21-30 wbc/hpf (0-5)
[2025-01-09 17:34] LABS: POTASSIUM 3.5 mmol/L (3.4-5.1); TOTAL PROTEIN 7.3 gm/dL (6.0-8.0)
[2025-01-09] MEDS ORDERED: ACETAMINOPHEN 325 MG TAB PO ONE (17:50)
[2025-01-09] MEDS ORDERED: DULCOLAX10 M1 R (18:39)
[2025-01-09] MEDS ORDERED: BISACODYL 10 MG SUPP R ONE (18:45)
== END 2025-01-09 19:01 | disposition home or self-care (01) ==
LOC: ED 16:25
PROVIDERS: Physician Assistant Medical
DX: N39.0 Urinary tract infection, site not specified (principal); K08.89 Other specified disorders of teeth and supporting structures; K56.41 Fecal impaction; E11.22 Type 2 diabetes mellitus with diabetic chronic kidney disease; I13.0 Hypertensive heart and chronic kidney disease with heart failure and stage 1 through stage 4 chronic kidney disease, or unspecified chronic kidney disease; N18.2 Chronic kidney disease, stage 2 (mild); I50.9 Heart failure, unspecified; F41.9 Anxiety disorder, unspecified; F32.A Depression, unspecified; K21.9 Gastro-esophageal reflux disease without esophagitis; I25.10 Atherosclerotic heart disease of native coronary artery without angina pectoris; M79.7 Fibromyalgia; E78.5 Hyperlipidemia, unspecified; Z88.8 Allergy status to other drugs, medicaments and biological substances; Z91.041 Radiographic dye allergy status; Z88.5 Allergy status to narcotic agent; Z79.899 Other long term (current) drug therapy; Z79.82 Long term (current) use of aspirin; Z79.4 Long term (current) use of insulin; Z90.49 Acquired absence of other specified parts of digestive tract; Z90.710 Acquired absence of both cervix and uterus

== ENCOUNTER 2025-03-01 20:11 | Observation (INO) | payer OTHER ==
[~2025-03-01] VITALS: Ht 170.1 cm; Wt 85.0 kg
[~2025-03-01 20:11] MED LIST changes: +DULCOLAX10 M1 R
[2025-03-01 20:30] VITALS: BP 133/52
[2025-03-01 21:17] LABS: BASO % 0.3 % (0.0-1.0); EOS % 0.2 % (1.0-4.0); HEMATOCRIT 41.3 % (37.0-47.0); MEAN CELL VOLUME 89.4 fl (81.0-99.0); MEAN CORPUSCULAR HGB 30.7 pg (27.0-31.0); MEAN CORPUSCULAR HGB CONC 34.4 g/dl (33.0-37.0); MEAN PLATELET VOLUME 10.2 fl (9.6-12.3); MONO # 0.7 10*3/uL (0.1-1.0); MONO % 7.3 % (3.0-9.0); NEUT # 5.8 10*3/uL (2.3-7.9); NEUT % 63.6 % (47.0-73.0); PLATELET COUNT AUTOMATED 210 10*3/uL (130-400); RED BLOOD COUNT 4.62 10*6/uL (4.10-5.10); RED CELL DISTRI WIDTH 12.8 % (0-14.5); WHITE BLOOD COUNT 9.1 10*3/uL (4.8-10.8)
[2025-03-01 21:39] LABS: ALKALINE PHOSPHATASE 84 U/L (46-116); BUN 17 mg/dl (9-23); CHLORIDE 103 mmol/L (98-107); LIPASE 47 U/L (12-53); POTASSIUM 3.2 mmol/L (3.4-5.1); SGPT/ALT 17 U/L (5-49); TOTAL PROTEIN 7.2 gm/dL (6.0-8.0)
[2025-03-01] MEDS ORDERED: fentaNYL CITRATE 100 MCG/2 ML VIAL IV ONE (21:55)
[2025-03-01] MEDS ORDERED: Acetaminophen/Hydrocodone 5 MG/325 MG TABLET PO ONE (22:10)
[2025-03-01] MEDS ORDERED: POTASSIUM CHLORIDE 20 MEQ TAB PO ONE (22:35)
[2025-03-01] MEDS ORDERED: LORazepam 1 MG TAB PO ONE (23:30)
[2025-03-01] MEDS ORDERED: PRESERVISION A1 EAC4 PO (23:50)
[2025-03-01] MEDS ORDERED: EFFEXOR XR75 M1 PO (23:50)
[2025-03-02] VITALS (7 sets, daily range): BP systolic 96–133; BP diastolic 31–59
[2025-03-02] MEDS ORDERED: ACETAMINOPHEN 650 MG SUPP R PRN (00:30)
[2025-03-02] MEDS ORDERED: BISACODYL 5 MG TAB PO PRN (00:30)
[2025-03-02] MEDS ORDERED: ACETAMINOPHEN 325 MG TAB PO PRN (00:30)
[2025-03-02] MEDS ORDERED: BISACODYL 10 MG SUPP R PRN (00:30)
[2025-03-02] MEDS ORDERED: Magnesium Hydroxide 30 ML UDC PO PRN (00:30)
[2025-03-02] MEDS ORDERED: Acetaminophen/Hydrocodone 5 MG/325 MG TABLET PO PRN (00:30)
[2025-03-02] MEDS ORDERED: Ondansetron Hydrochloride 4 MG/2 ML VIAL IV PRN (00:30)
[2025-03-02] MEDS ORDERED: MELATONIN 1 MG PO PRN (00:40)
[2025-03-02] MEDS ORDERED: Melatonin 3 MG TABLET PO PRN (01:10)
[2025-03-02] MEDS ORDERED: DEXTROSE 50% 25 GM/50 ML VIAL IV PRN (01:10)
[2025-03-02] MEDS ORDERED: SODIUM CHLORIDE 0.9% 1,000 ML IV ONE (05:55)
[2025-03-02] MEDS ORDERED: Pantoprazole Sodium 40 MG TAB PO SCH (06:00)
[2025-03-02 06:23] LABS: BASO % 0.4 % (0.0-1.0); EOS % 0.3 % (1.0-4.0); HEMATOCRIT 41.7 % (37.0-47.0); MEAN CELL VOLUME 90.1 fl (81.0-99.0); MEAN CORPUSCULAR HGB 30.9 pg (27.0-31.0); MEAN CORPUSCULAR HGB CONC 34.3 g/dl (33.0-37.0); MEAN PLATELET VOLUME 10.3 fl (9.6-12.3); MONO # 0.7 10*3/uL (0.1-1.0); MONO % 7.2 % (3.0-9.0); NEUT # 5.4 10*3/uL (2.3-7.9); PLATELET COUNT AUTOMATED 213 10*3/uL (130-400); RED BLOOD COUNT 4.63 10*6/uL (4.10-5.10); RED CELL DISTRI WIDTH 13.1 % (0-14.5)
[2025-03-02] MEDS ORDERED: Technetium Tc 99M Tetrofosmi 0.23 MG KIT IJ SCH (07:15)
[2025-03-02 07:24] LABS: BUN 17 mg/dl (9-23); CHLORIDE 105 mmol/L (98-107); CHOLESTEROL 126 mg/dL (<200); FREE T4 1.32 ng/dl (0.89-1.76); LDL CHOLESTEROL 47 mg/dL (9-159); POTASSIUM 3.4 mmol/L (3.4-5.1); TRIGLYCERIDES 228 mg/dl (<150)
[2025-03-02] MEDS ORDERED: INSULIN LISPRO 1 UNIT/0.01 ML SQ SCH (07:30)
[2025-03-02] MEDS ORDERED: Regadenoson 0.4 MG/5 ML SYR IV ONE (07:31)
[2025-03-02 07:39] LABS: VITAMIN D, 25-HYDROXY 37.6 ng/mL (30-100)
[2025-03-02] MEDS ORDERED: Enoxaparin Sodium 30 MG/0.3 ML SYR SC SCH (10:00)
[2025-03-02] MEDS ORDERED: CARVEDILOL 25 MG TAB PO SCH (10:00)
[2025-03-02] MEDS ORDERED: ASPIRIN ENTERIC COATED 81 MG TAB PO SCH (10:00)
[2025-03-02 19:22] LABS: BILIRUBIN Negative (Negative); BLOOD Negative (Negative); CLARITY Clear (Clear); COLOR Yellow (Yellow); GLUCOSE Negative (Negative); KETONE Negative (Negative); LEUKO ESTERASE 3+ (Negative); NITRITE Negative (Negative); PH 6.5 (4.5-8.0); SPECIFIC GRAVITY 1.015 (1.001-1.030)
[2025-03-02 19:41] LABS: BACTERIA 2+; WBC 41-50 wbc/hpf (0-5)
[2025-03-02] MEDS ORDERED: ATORVASTATIN CALCIUM 40 MG TABLET PO SCH (22:00)
[2025-03-03] MEDS ORDERED: SIMETHICONE 80 MG TAB PO PRN (03:50)
[2025-03-03 08:00] VITALS: BP 115/39
[2025-03-03] MEDS ORDERED: Enoxaparin Sodium 40 MG/0.4 ML SYR SC SCH (10:00)
[2025-03-03] MEDS ORDERED: Ketorolac Tromethamine 30 MG/ML VIAL IV ONE (10:40)
[2025-03-03] MEDS ORDERED: BENZOCAINE 20% 11.9 GM GEL T PRN (10:45)
[2025-03-03 12:00] VITALS: BP 116/48; BP 78/60
[2025-03-03] MEDS ORDERED: AMOXICILLIN500 M3 PO (13:02)
[2025-03-03] MEDS ORDERED: clonAZEPAM 1 MG TAB PO PRN (13:10)
== END 2025-03-03 15:52 | disposition home or self-care (01) ==
LOC: ED 20:11 → EDHOLD 23:29 → 5E 03-02 23:27
PROVIDERS: Nurse Practitioner Family; Student in an Organized Health Care Education/Training Program; ADMIT Internal Medicine; ATTEND Internal Medicine
DX: R07.89 Other chest pain (principal); E78.5 Hyperlipidemia, unspecified; I25.10 Atherosclerotic heart disease of native coronary artery without angina pectoris; K21.9 Gastro-esophageal reflux disease without esophagitis; R53.1 Weakness; I12.9 Hypertensive chronic kidney disease with stage 1 through stage 4 chronic kidney disease, or unspecified chronic kidney disease; E11.22 Type 2 diabetes mellitus with diabetic chronic kidney disease; N18.30 Chronic kidney disease, stage 3 unspecified; R26.2 Difficulty in walking, not elsewhere classified; E87.6 Hypokalemia; E55.9 Vitamin D deficiency, unspecified; E78.2 Mixed hyperlipidemia; L30.9 Dermatitis, unspecified; E53.8 Deficiency of other specified B group vitamins; F41.9 Anxiety disorder, unspecified; M19.90 Unspecified osteoarthritis, unspecified site; E11.40 Type 2 diabetes mellitus with diabetic neuropathy, unspecified; M79.7 Fibromyalgia; E11.65 Type 2 diabetes mellitus with hyperglycemia; Z79.899 Other long term (current) drug therapy; Z79.4 Long term (current) use of insulin; Z90.49 Acquired absence of other specified parts of digestive tract; Z90.710 Acquired absence of both cervix and uterus

== ENCOUNTER 2025-04-12 21:32 | Emergency (ER) | payer OTHER ==
[~2025-04-12] VITALS: Ht 170.1 cm; Wt 85.7 kg
[~2025-04-12 21:32] MED LIST changes: +AMOXICILLIN500 M3 PO; +EFFEXOR XR75 M1 PO; +PRESERVISION A1 EAC4 PO
[2025-04-12 21:33] VITALS: BP 125/48
[2025-04-12 22:17] LABS: BILIRUBIN Negative (Negative); BLOOD Negative (Negative); CLARITY Cloudy (Clear); COLOR Yellow (Yellow); KETONE Trace (Negative); LEUKO ESTERASE Trace (Negative); NITRITE Negative (Negative); PH 7.5 (4.5-8.0); SPECIFIC GRAVITY 1.025 (1.001-1.030); UROBILINOGEN 1.0 E.U./dl (0.0-1.0)
[2025-04-12 22:26] LABS: BACTERIA 2+
[2025-04-12] MEDS ORDERED: Ondansetron Hydrochloride 4 MG/2 ML VIAL IV ONE (22:30)
[2025-04-12 22:52] LABS: BASO # 0.0 10*3/uL (0.0-0.1); BASO % 0.4 % (0.0-1.0); EOS # 0.2 10*3/uL (0.0-0.4); EOS % 2.1 % (1.0-4.0); MEAN CELL VOLUME 92.7 fl (81.0-99.0); MEAN CORPUSCULAR HGB 30.0 pg (27.0-31.0); MEAN PLATELET VOLUME 10.4 fl (9.6-12.3); MONO # 0.6 10*3/uL (0.1-1.0); MONO % 8.0 % (3.0-9.0); NEUT # 4.0 10*3/uL (2.3-7.9); NEUT % 54.4 % (47.0-73.0); NUCLEATED RED BLOOD CELL 0.0 % (0.0-0.0); NUCLEATED RED BLOOD CELL 0.0 10*3/uL (0.0-0.0); PLATELET COUNT AUTOMATED 201 10*3/uL (130-400); RED CELL DISTRI WIDTH 13.3 % (0-14.5)
[2025-04-12 23:14] LABS: BUN 12 mg/dl (9-23); SGPT/ALT 22 U/L (5-49)
[2025-04-13] MEDS ORDERED: HYDROmorphONE Hydrochloride 0.5 MG/0.5 ML SYRINGE IV ONE (01:45)
== END 2025-04-13 02:22 ==
LOC: ED 21:32
PROVIDERS: Emergency Medicine
DX: K57.90 Diverticulosis of intestine, part unspecified, without perforation or abscess without bleeding (principal); E11.22 Type 2 diabetes mellitus with diabetic chronic kidney disease; I12.9 Hypertensive chronic kidney disease with stage 1 through stage 4 chronic kidney disease, or unspecified chronic kidney disease; N18.30 Chronic kidney disease, stage 3 unspecified; M19.90 Unspecified osteoarthritis, unspecified site; F41.9 Anxiety disorder, unspecified; E11.40 Type 2 diabetes mellitus with diabetic neuropathy, unspecified; E78.2 Mixed hyperlipidemia; I25.10 Atherosclerotic heart disease of native coronary artery without angina pectoris; M79.7 Fibromyalgia; K21.9 Gastro-esophageal reflux disease without esophagitis; F32.A Depression, unspecified; Z88.8 Allergy status to other drugs, medicaments and biological substances; Z91.041 Radiographic dye allergy status; Z88.5 Allergy status to narcotic agent; Z79.82 Long term (current) use of aspirin; Z79.899 Other long term (current) drug therapy; Z90.710 Acquired absence of both cervix and uterus; Z90.49 Acquired absence of other specified parts of digestive tract

== ENCOUNTER → 2025-04-27 | Day surgery (SDC) | payer OTHER ==
[2025-04-27] VITALS (7 sets, daily range): BP systolic 104–128; BP diastolic 52–65
[~2025-04-27] VITALS: Wt 86.2 kg
[~2025-04-27] MED LIST changes: +Betamethasone ACE/Betamethas 30 MG/5 ML VIAL IJ ONE; +Lidocaine Hydrochloride 30 ML VIAL ONE; +Lidocaine Hydrochloride 5 ML AMP IJ ONE
== END | disposition home or self-care (01) ==
LOC: SDC 04-11 08:45
PROVIDERS: ATTEND Orthopaedic Surgery
DX: M16.11 Unilateral primary osteoarthritis, right hip (principal); M79.7 Fibromyalgia; E11.22 Type 2 diabetes mellitus with diabetic chronic kidney disease; I12.9 Hypertensive chronic kidney disease with stage 1 through stage 4 chronic kidney disease, or unspecified chronic kidney disease; N18.30 Chronic kidney disease, stage 3 unspecified; F32.2 Major depressive disorder, single episode, severe without psychotic features; I25.118 Atherosclerotic heart disease of native coronary artery with other forms of angina pectoris; K21.9 Gastro-esophageal reflux disease without esophagitis; E78.2 Mixed hyperlipidemia; F41.8 Other specified anxiety disorders; Z88.6 Allergy status to analgesic agent; Z88.8 Allergy status to other drugs, medicaments and biological substances; Z86.16 Personal history of COVID-19

== ENCOUNTER 2025-06-21 12:58 | Emergency (ER) | payer OTHER ==
[~2025-06-21] VITALS: Ht 170.1 cm; Wt 79.4 kg
[~2025-06-21 12:58] MED LIST changes: -Betamethasone ACE/Betamethas 30 MG/5 ML VIAL IJ ONE; +CEFPODOXIME PR200 M1 PO; -Lidocaine Hydrochloride 30 ML VIAL ONE; -Lidocaine Hydrochloride 5 ML AMP IJ ONE
[2025-06-21 13:17] VITALS: BP 120/82
[2025-06-21 13:54] LABS: BILIRUBIN Negative (Negative); BLOOD Negative (Negative); CLARITY Cloudy (Clear); COLOR Yellow (Yellow); KETONE Negative (Negative); LEUKO ESTERASE 2+ (Negative); NITRITE Negative (Negative); PH 6.5 (4.5-8.0); SPECIFIC GRAVITY 1.015 (1.001-1.030); UROBILINOGEN 1.0 E.U./dl (0.0-1.0)
[2025-06-21 14:08] LABS: BACTERIA 1+; WBC 16-20 wbc/hpf (0-5)
[2025-06-21] MEDS ORDERED: HYDROmorphONE Hydrochloride 0.5 MG/0.5 ML SYRINGE IM ONE (14:45)
[2025-06-21] MEDS ORDERED: Ciprofloxacin Hydrochloride 500 MG TAB PO ONE (14:45)
[2025-06-21] MEDS ORDERED: CEPHALEXIN 500 MG CAP PO ONE (15:50)
[2025-06-21] MEDS ORDERED: KLONOPIN1 M1 PO (15:54)
[2025-06-21] MEDS ORDERED: CEPHALEXIN500 M1 PO (15:54)
== END 2025-06-21 16:06 | disposition home or self-care (01) ==
LOC: ED 12:58
PROVIDERS: Nurse Practitioner Family
DX: N39.0 Urinary tract infection, site not specified (principal); F41.9 Anxiety disorder, unspecified; G89.29 Other chronic pain; I25.10 Atherosclerotic heart disease of native coronary artery without angina pectoris; E78.5 Hyperlipidemia, unspecified; K21.9 Gastro-esophageal reflux disease without esophagitis; F32.A Depression, unspecified; I12.9 Hypertensive chronic kidney disease with stage 1 through stage 4 chronic kidney disease, or unspecified chronic kidney disease; N18.9 Chronic kidney disease, unspecified; Z88.8 Allergy status to other drugs, medicaments and biological substances; Z88.5 Allergy status to narcotic agent; Z91.041 Radiographic dye allergy status; Z79.82 Long term (current) use of aspirin; Z79.899 Other long term (current) drug therapy; Z90.49 Acquired absence of other specified parts of digestive tract; Z90.710 Acquired absence of both cervix and uterus

== ENCOUNTER 2025-08-01 15:30 | Emergency (ER) | payer OTHER ==
[~2025-08-01 15:30] MED LIST changes: +CEPHALEXIN500 M1 PO; +HUMALOG JU100 UNIT/1 SQ; +LORAZEPAM0.5 M1 PO; +MIRALAX17 GM PO; +PRESERVISION A1 EAC7 PO; +VENLAFAXINE HY150 M2 PO
[2025-08-01 15:35] VITALS: BP 104/55
[2025-08-01] MEDS ORDERED: Ondansetron Hydrochloride 4 MG/2 ML VIAL IV ONE (15:40)
[2025-08-01] MEDS ORDERED: Metoclopramide Hydrochloride 10 MG/2 ML VIAL IV ONE (15:40)
[2025-08-01] MEDS ORDERED: SODIUM CHLORIDE 0.9% 500 ML IV ONE (15:45)
[2025-08-01 15:52] LABS: BASO # 0.0 10*3/uL (0.0-0.1); BASO % 0.3 % (0.0-1.0); EOS # 0.1 10*3/uL (0.0-0.4); EOS % 1.0 % (1.0-4.0); MEAN CELL VOLUME 92.0 fl (81.0-99.0); MEAN CORPUSCULAR HGB 30.3 pg (27.0-31.0); MEAN PLATELET VOLUME 10.1 fl (9.6-12.3); MONO # 0.5 10*3/uL (0.1-1.0); MONO % 6.4 % (3.0-9.0); NEUT # 4.6 10*3/uL (2.3-7.9); NEUT % 58.6 % (47.0-73.0); NUCLEATED RED BLOOD CELL 0.0 % (0.0-0.0); NUCLEATED RED BLOOD CELL 0.0 10*3/uL (0.0-0.0); PLATELET COUNT AUTOMATED 169 10*3/uL (130-400); RED CELL DISTRI WIDTH 13.2 % (0-14.5)
[2025-08-01 16:14] LABS: BUN 11 mg/dl (9-23); SGPT/ALT 32 U/L (5-49)
[2025-08-01 16:16] LABS: BILIRUBIN Negative (Negative); BLOOD Negative (Negative); CLARITY Clear (Clear); COLOR Yellow (Yellow); KETONE Negative (Negative); LEUKO ESTERASE Trace (Negative); NITRITE Negative (Negative); PH 8.0 (4.5-8.0); SPECIFIC GRAVITY 1.015 (1.001-1.030); UROBILINOGEN 1.0 E.U./dl (0.0-1.0)
[2025-08-01] MEDS ORDERED: DULCOLAX STOOL100 M1 PO (16:27)
[2025-08-01] MEDS ORDERED: LORADAMED10 MG PO (16:28)
[2025-08-01] MEDS ORDERED: BUSPAR5 MG PO (16:29)
[2025-08-01] MEDS ORDERED: PRESERVISION A1 EAC8 PO (16:31)
[2025-08-01] MEDS ORDERED: OXYBUTYNIN10 MG PO (16:32)
[2025-08-01] MEDS ORDERED: VITAMIN D3125 MCG PO (16:35)
[2025-08-01] MEDS ORDERED: TRULICITY1.5 MG/0.5 SC (16:41)
[2025-08-01 16:44] LABS: BACTERIA 2+
[2025-08-01] MEDS ORDERED: REGLAN10 M1 PO (17:33)
[2025-08-01] MEDS ORDERED: MACROBID100 M1 PO (17:33)
[2025-08-01] MEDS ORDERED: Ondansetron4 MG PO (17:33)
== END 2025-08-01 18:12 | disposition home or self-care (01) ==
LOC: ED 15:30
PROVIDERS: Emergency Medicine
DX: K29.70 Gastritis, unspecified, without bleeding (principal); G89.29 Other chronic pain; E11.43 Type 2 diabetes mellitus with diabetic autonomic (poly)neuropathy; K31.84 Gastroparesis; N39.0 Urinary tract infection, site not specified; K21.9 Gastro-esophageal reflux disease without esophagitis; E66.9 Obesity, unspecified; Z91.041 Radiographic dye allergy status; Z88.8 Allergy status to other drugs, medicaments and biological substances; Z91.013 Allergy to seafood; Z88.5 Allergy status to narcotic agent; Z79.82 Long term (current) use of aspirin; Z79.899 Other long term (current) drug therapy; Z79.4 Long term (current) use of insulin; Z90.49 Acquired absence of other specified parts of digestive tract; Z90.711 Acquired absence of uterus with remaining cervical stump; Z68.30 Body mass index [BMI] 30.0-30.9, adult

== ENCOUNTER 2025-08-05 13:52 | Emergency (ER) | payer OTHER ==
[~2025-08-05] VITALS: Ht 157.4 cm; Wt 81.6 kg
[~2025-08-05 13:52] MED LIST changes: +BUSPAR5 MG PO; +DULCOLAX STOOL100 M1 PO; +LORADAMED10 MG PO; +OXYBUTYNIN10 MG PO; +Ondansetron4 MG PO; +PRESERVISION A1 EAC8 PO; +REGLAN10 M1 PO; +TRULICITY1.5 MG/0.5 SC; +VITAMIN D3125 MCG PO
[2025-08-05] MEDS ORDERED: SODIUM POLYSTYRENE SULFONATE 15 GM/60 ML BOT PO ONE (13:55)
[2025-08-05] MEDS ORDERED: MAGNESIUM CITRATE 296 ML BOT PO ONE (13:55)
[2025-08-05] MEDS ORDERED: SODIUM CHLORIDE 0.9% 1,000 ML IV ONE (13:55)
[2025-08-05 14:21] LABS: BASO # 0.0 10*3/uL (0.0-0.1); BASO % 0.3 % (0.0-1.0); EOS # 0.1 10*3/uL (0.0-0.4); EOS % 1.8 % (1.0-4.0); MEAN CELL VOLUME 92.9 fl (81.0-99.0); MEAN CORPUSCULAR HGB 30.5 pg (27.0-31.0); MEAN PLATELET VOLUME 10.3 fl (9.6-12.3); MONO # 0.5 10*3/uL (0.1-1.0); MONO % 7.3 % (3.0-9.0); NEUT # 3.5 10*3/uL (2.3-7.9); NEUT % 56.2 % (47.0-73.0); NUCLEATED RED BLOOD CELL 0.0 % (0.0-0.0); NUCLEATED RED BLOOD CELL 0.0 10*3/uL (0.0-0.0); PLATELET COUNT AUTOMATED 172 10*3/uL (130-400); RED CELL DISTRI WIDTH 13.5 % (0-14.5)
[2025-08-05 14:43] LABS: BUN 14 mg/dl (9-23); SGPT/ALT 31 U/L (5-49)
[2025-08-05] MEDS ORDERED: COLACE 2-IN-11 EACH PO (16:00)
== END 2025-08-05 16:30 | disposition home or self-care (01) ==
LOC: ED 13:52
PROVIDERS: Emergency Medicine
DX: K59.00 Constipation, unspecified (principal); R10.30 Lower abdominal pain, unspecified; Z90.710 Acquired absence of both cervix and uterus; Z90.49 Acquired absence of other specified parts of digestive tract; Z98.890 Other specified postprocedural states; Z88.1 Allergy status to other antibiotic agents; Z91.013 Allergy to seafood; Z88.6 Allergy status to analgesic agent; Z88.8 Allergy status to other drugs, medicaments and biological substances

== ENCOUNTER 2025-08-14 15:33 | Emergency (ER) | payer OTHER ==
[~2025-08-14] VITALS: Ht 170.1 cm; Wt 81.6 kg
[~2025-08-14 15:33] MED LIST changes: +COLACE 2-IN-11 EACH PO
[2025-08-14 15:49] VITALS: BP 110/57
[2025-08-14] MEDS ORDERED: SODIUM CHLORIDE 0.9% 500 ML IV ONE (16:10)
[2025-08-14 16:45] LABS: BASO # 0.0 10*3/uL (0.0-0.1); BASO % 0.4 % (0.0-1.0); EOS # 0.1 10*3/uL (0.0-0.4); EOS % 1.1 % (1.0-4.0); MEAN CELL VOLUME 91.7 fl (81.0-99.0); MEAN CORPUSCULAR HGB 30.3 pg (27.0-31.0); MEAN PLATELET VOLUME 9.9 fl (9.6-12.3); MONO # 0.5 10*3/uL (0.1-1.0); MONO % 6.4 % (3.0-9.0); NEUT # 5.6 10*3/uL (2.3-7.9); NEUT % 69.4 % (47.0-73.0); NUCLEATED RED BLOOD CELL 0.0 % (0.0-0.0); NUCLEATED RED BLOOD CELL 0.0 10*3/uL (0.0-0.0); PLATELET COUNT AUTOMATED 171 10*3/uL (130-400); RED CELL DISTRI WIDTH 13.4 % (0-14.5)
[2025-08-14 17:02] LABS: BUN 13 mg/dl (9-23)
[2025-08-14] MEDS ORDERED: SODIUM CHLORIDE 0.9% 100 ML BAG IV ONE (18:35)
[2025-08-14] MEDS ORDERED: ACETAMINOPHEN 325 MG TAB PO ONE (18:35)
[2025-08-14] MEDS ORDERED: Iodixanol 320 100 ML VIAL IV ONE (18:35)
[2025-08-14] MEDS ORDERED: LORazepam 1 MG TAB PO ONE (21:20)
== END 2025-08-14 21:30 | disposition home or self-care (01) ==
LOC: ED 15:33
PROVIDERS: Student in an Organized Health Care Education/Training Program
DX: F41.9 Anxiety disorder, unspecified (principal); I25.10 Atherosclerotic heart disease of native coronary artery without angina pectoris; K21.9 Gastro-esophageal reflux disease without esophagitis; M19.90 Unspecified osteoarthritis, unspecified site; M79.7 Fibromyalgia; F32.A Depression, unspecified; E11.9 Type 2 diabetes mellitus without complications; Z90.49 Acquired absence of other specified parts of digestive tract; Z90.710 Acquired absence of both cervix and uterus; Z88.5 Allergy status to narcotic agent; Z91.013 Allergy to seafood; Z88.8 Allergy status to other drugs, medicaments and biological substances

== ENCOUNTER 2025-08-17 11:28 | Inpatient (IN) | payer OTHER ==
[~2025-08-17] VITALS: Ht 170.1 cm; Wt 81.6 kg
[2025-08-17 11:42] VITALS: BP 113/50
[2025-08-17 12:05] LABS: BASO # 0.0 10*3/uL (0.0-0.1); BASO % 0.1 % (0.0-1.0); EOS # 0.1 10*3/uL (0.0-0.4); EOS % 1.1 % (1.0-4.0); MEAN CELL VOLUME 94.5 fl (81.0-99.0); MEAN CORPUSCULAR HGB 30.6 pg (27.0-31.0); MEAN PLATELET VOLUME 10.2 fl (9.6-12.3); MONO # 0.6 10*3/uL (0.1-1.0); MONO % 7.9 % (3.0-9.0); NEUT # 4.6 10*3/uL (2.3-7.9); NEUT % 63.5 % (47.0-73.0); NUCLEATED RED BLOOD CELL 0.0 % (0.0-0.0); NUCLEATED RED BLOOD CELL 0.0 10*3/uL (0.0-0.0); PLATELET COUNT AUTOMATED 173 10*3/uL (130-400); RED CELL DISTRI WIDTH 13.5 % (0-14.5)
[2025-08-17 12:23] LABS: BUN 10 mg/dl (9-23)
[2025-08-17 13:10] LABS: URINE AMPHETAMINES Negative (1000ng/ml); URINE BARBITURATES Negative (200ng/ml); URINE BENZODIAZEPINES Negative (200ng/ml); URINE CANNABINOIDS (THC) Negative (50ng/ml); URINE COCAINE Negative (300ng/ml); URINE METHADONE Negative (300ng/ml); URINE OPIATES Negative (300ng/ml); URINE PHENCYCLIDINE Negative (25ng/ml)
[2025-08-17] MEDS ORDERED: ACETAMINOPHEN 325 MG TAB PO PRN (17:00)
[2025-08-17] MEDS ORDERED: LORazepam 1 MG TAB PO PRN (17:00)
[2025-08-17] MEDS ORDERED: MG-AL HYDROXIDE/SIMETICONE 30 ML UDC PO PRN (17:00)
[2025-08-17] MEDS ORDERED: Menthol/Zinc Oxide 4 GM THIN T PRN (17:10)
[2025-08-17 17:18] VITALS: BP 131/63
[2025-08-17 20:00] VITALS: BP 98/34
[2025-08-18 07:08] LABS: BUN 11 mg/dl (9-23); LDL CHOLESTEROL 45 mg/dL (9-159); SGPT/ALT 19 U/L (5-49)
[2025-08-18 07:28] LABS: BASO # 0.0 10*3/uL (0.0-0.1); BASO % 0.3 % (0.0-1.0); EOS # 0.1 10*3/uL (0.0-0.4); EOS % 2.3 % (1.0-4.0); MEAN CORPUSCULAR HGB 30.0 pg (27.0-31.0); MEAN PLATELET VOLUME 10.2 fl (9.6-12.3); MONO # 0.6 10*3/uL (0.1-1.0); MONO % 9.4 % (3.0-9.0); NEUT # 3.0 10*3/uL (2.3-7.9); NEUT % 48.6 % (47.0-73.0); NUCLEATED RED BLOOD CELL 0.0 % (0.0-0.0); NUCLEATED RED BLOOD CELL 0.0 10*3/uL (0.0-0.0); PLATELET COUNT AUTOMATED 175 10*3/uL (130-400); RED CELL DISTRI WIDTH 13.3 % (0-14.5)
[2025-08-18 07:29] LABS: MEAN CELL VOLUME 92.0 fl (81.0-99.0)
[2025-08-18 08:00] VITALS: BP 112/45
[2025-08-18] MEDS ORDERED: OXYCODONE-ACET1 EACH PO (08:46)
[2025-08-18] MEDS ORDERED: MIRALAX119 GM PO (09:00)
[2025-08-18] MEDS ORDERED: DOCUSATE SODIUM 100 MG CAP PO PRN (09:25)
[2025-08-18] MEDS ORDERED: Acetaminophen/Oxycodone Hydr 7.5 MG/325 MG TABLET PO PRN (09:35)
[2025-08-18] MEDS ORDERED: ISOSORBIDE MONONITRATE 60 MG TAB PO SCH (10:00)
[2025-08-18] MEDS ORDERED: LORATADINE 10 MG TAB PO SCH (10:00)
[2025-08-18] MEDS ORDERED: Polyethylene Glycol 3350 17 GM PACKET PO SCH (10:00)
[2025-08-18] MEDS ORDERED: ASPIRIN ENTERIC COATED 81 MG TAB PO SCH (10:00)
[2025-08-18] MEDS ORDERED: CARVEDILOL 25 MG TAB PO SCH (10:00)
[2025-08-18 11:23] LABS: VITAMIN D, 25-HYDROXY 49.5 ng/mL (30-100)
[2025-08-18] MEDS ORDERED: INSULIN LISPRO 1 UNIT/0.01 ML SQ SCH (11:30)
[2025-08-18 12:48] LABS: BILIRUBIN Negative (Negative); BLOOD Negative (Negative); CLARITY Clear (Clear); COLOR Yellow (Yellow); KETONE Negative (Negative); LEUKO ESTERASE 1+ (Negative); NITRITE Negative (Negative); PH 7.0 (4.5-8.0); SPECIFIC GRAVITY 1.015 (1.001-1.030); UROBILINOGEN 1.0 E.U./dl (0.0-1.0)
[2025-08-18 13:14] LABS: BACTERIA TRACE
[2025-08-18 20:00] VITALS: BP 113/49
[2025-08-18] MEDS ORDERED: IBUPROFEN 200 MG TAB PO PRN (20:45)
[2025-08-18] MEDS ORDERED: ATORVASTATIN CALCIUM 40 MG TABLET PO SCH (21:00)
[2025-08-19 08:00] VITALS: BP 93/55
[2025-08-19] MEDS ORDERED: Cholecalciferol 5,000 IU CAP (125 MCG) PO SCH (09:00)
[2025-08-19 20:00] VITALS: BP 93/55
[2025-08-20 06:55] LABS: BUN 14 mg/dl (9-23)
[2025-08-20 08:09] VITALS: BP 123/85
[2025-08-20] MEDS ORDERED: TRULICITY 1.5 MG SQ SCH (10:00)
[2025-08-20 20:00] VITALS: BP 108/72
[2025-08-21 08:00] VITALS: BP 100/54
[2025-08-21] MEDS ORDERED: GABAPENTIN 100 MG CAP PO SCH (14:00)
[2025-08-21] MEDS ORDERED: MED. FROM HOME 1 EACH EA SC SCH (18:00)
[2025-08-21 20:00] VITALS: BP 107/51
[2025-08-21] MEDS ORDERED: LIDOCAINE 4% PATCH T SCH (21:00)
[2025-08-21] MEDS ORDERED: LIDOCAINE 5% ANORECTAL CREAM T SCH (21:00)
[2025-08-22 07:51] VITALS: BP 109/49
[2025-08-22 20:00] VITALS: BP 116/65
[2025-08-23 08:00] VITALS: BP 95/67
[2025-08-23] MEDS ORDERED: Z-BEC PO SCH (09:00)
[2025-08-23] MEDS ORDERED: GABAPENTIN100 M2 PO (11:29)
[2025-08-23] MEDS ORDERED: CLONAZEPAM1 MG PO (11:29)
[2025-08-23] MEDS ORDERED: DIALYVITE WITH1 EACH PO (11:29)
[2025-08-23] MEDS ORDERED: VITAMIN D3125 MC1 PO (11:29)
[2025-08-23] MEDS ORDERED: DULOXETINE HCL60 MG PO (11:29)
== END 2025-08-23 13:38 | disposition home health service (06) | DRG 885 ==
LOC: ED 11:28 → EDHOLD 15:22 → 3N 15:22
PROVIDERS: Internal Medicine; Student in an Organized Health Care Education/Training Program; ADMIT Psychiatry & Neurology Psychiatry; ATTEND Psychiatry & Neurology Psychiatry
PROC: GZHZZZZ Group Psychotherapy (ICD-10-PCS; principal; 2025-08-17)
PROC: GZ56ZZZ Individual Psychotherapy, Supportive (ICD-10-PCS; 2025-08-17)
DX: F33.2 Major depressive disorder, recurrent severe without psychotic features (principal); Z20.822 Contact with and (suspected) exposure to COVID-19; I25.10 Atherosclerotic heart disease of native coronary artery without angina pectoris; G89.29 Other chronic pain; M54.9 Dorsalgia, unspecified; E11.42 Type 2 diabetes mellitus with diabetic polyneuropathy; K21.9 Gastro-esophageal reflux disease without esophagitis; M79.7 Fibromyalgia; K58.9 Irritable bowel syndrome, unspecified; I11.9 Hypertensive heart disease without heart failure; F41.1 Generalized anxiety disorder; Z88.6 Allergy status to analgesic agent; Z88.1 Allergy status to other antibiotic agents; Z88.2 Allergy status to sulfonamides; Z88.8 Allergy status to other drugs, medicaments and biological substances; Z91.018 Allergy to other foods; Z91.09 Other allergy status, other than to drugs and biological substances; Z79.899 Other long term (current) drug therapy; Z79.01 Long term (current) use of anticoagulants; Z79.2 Long term (current) use of antibiotics; Z79.4 Long term (current) use of insulin; Z90.49 Acquired absence of other specified parts of digestive tract; Z95.5 Presence of coronary angioplasty implant and graft; Z90.710 Acquired absence of both cervix and uterus; Z82.49 Family history of ischemic heart disease and other diseases of the circulatory system; Z83.3 Family history of diabetes mellitus; Z82.3 Family history of stroke; Z82.5 Family history of asthma and other chronic lower respiratory diseases; Z81.2 Family history of tobacco abuse and dependence; Z80.8 Family history of malignant neoplasm of other organs or systems

== ENCOUNTER 2025-08-25 13:14 | Emergency (ER) | payer OTHER ==
[~2025-08-25] VITALS: Ht 170.1 cm; Wt 84.8 kg
[~2025-08-25 13:14] MED LIST changes: +DIALYVITE WITH1 EACH PO; +DULOXETINE HCL60 MG PO; +GABAPENTIN100 M2 PO; +MIRALAX119 GM PO; +OXYCODONE-ACET1 EACH PO; +VITAMIN D3125 MC1 PO
[2025-08-25 13:35] VITALS: BP 126/98
[2025-08-25 14:16] LABS: BASO # 0.0 10*3/uL (0.0-0.1); BASO % 0.3 % (0.0-1.0); EOS # 0.1 10*3/uL (0.0-0.4); EOS % 1.0 % (1.0-4.0); MEAN CELL VOLUME 91.9 fl (81.0-99.0); MEAN CORPUSCULAR HGB 30.2 pg (27.0-31.0); MEAN PLATELET VOLUME 10.3 fl (9.6-12.3); MONO # 0.5 10*3/uL (0.1-1.0); MONO % 5.9 % (3.0-9.0); NEUT # 5.1 10*3/uL (2.3-7.9); NEUT % 64.4 % (47.0-73.0); NUCLEATED RED BLOOD CELL 0.0 % (0.0-0.0); NUCLEATED RED BLOOD CELL 0.0 10*3/uL (0.0-0.0); PLATELET COUNT AUTOMATED 172 10*3/uL (130-400); RED CELL DISTRI WIDTH 13.5 % (0-14.5)
[2025-08-25 14:37] LABS: BUN 10 mg/dl (9-23); ETHYL ALCOHOL < 3.0 mg/dl (<3); SGPT/ALT 25 U/L (5-49)
[2025-08-25 14:42] LABS: BILIRUBIN Negative (Negative); BLOOD Negative (Negative); CLARITY Clear (Clear); COLOR Yellow (Yellow); KETONE Negative (Negative); LEUKO ESTERASE 1+ (Negative); NITRITE Negative (Negative); PH 7.0 (4.5-8.0); SPECIFIC GRAVITY 1.015 (1.001-1.030); UROBILINOGEN 1.0 E.U./dl (0.0-1.0)
[2025-08-25 14:49] LABS: URINE AMPHETAMINES Negative (1000ng/ml); URINE BARBITURATES Negative (200ng/ml); URINE BENZODIAZEPINES Negative (200ng/ml); URINE CANNABINOIDS (THC) Negative (50ng/ml); URINE COCAINE Negative (300ng/ml); URINE METHADONE Negative (300ng/ml); URINE OPIATES Negative (300ng/ml); URINE PHENCYCLIDINE Negative (25ng/ml)
[2025-08-25 15:00] LABS: BACTERIA 3+; RBC 0-2 rbc/hpf (0-2)
[2025-08-25] MEDS ORDERED: OMNICEF300 MG PO (17:02)
[2025-08-25] MEDS ORDERED: VISTARIL25 MG PO (17:02)
== END 2025-08-25 17:40 | disposition home or self-care (01) ==
LOC: ED 13:14
PROVIDERS: Nurse Practitioner Family
DX: F41.9 Anxiety disorder, unspecified (principal); R07.89 Other chest pain; N39.0 Urinary tract infection, site not specified; K21.9 Gastro-esophageal reflux disease without esophagitis; M19.90 Unspecified osteoarthritis, unspecified site; I13.10 Hypertensive heart and chronic kidney disease without heart failure, with stage 1 through stage 4 chronic kidney disease, or unspecified chronic kidney disease; E11.22 Type 2 diabetes mellitus with diabetic chronic kidney disease; N18.30 Chronic kidney disease, stage 3 unspecified; I50.9 Heart failure, unspecified; I25.10 Atherosclerotic heart disease of native coronary artery without angina pectoris; Z88.5 Allergy status to narcotic agent; Z91.013 Allergy to seafood; Z88.8 Allergy status to other drugs, medicaments and biological substances; Z90.710 Acquired absence of both cervix and uterus; Z90.49 Acquired absence of other specified parts of digestive tract; Z98.890 Other specified postprocedural states